=== PATIENT | male | born 1980 | race Caucasian/White ===

== ENCOUNTER 2016-12-28 18:29 | Emergency (ER) | payer BC ==
[~2016-12-28] VITALS: Ht 177.8 cm; Wt 79.0 kg
[~2016-12-28 18:29] MED LIST: INSU3INS6 SUBCUT; INSULIN; METF10002 PO
[2016-12-28] MEDS ORDERED: ONDANSETRON HCL 4MG/2ML VIAL IV STA ×2 (19:08→21:29)
[2016-12-28] MEDS ORDERED: SODIUM CHLORIDE 0.9% 1,000 ML IV ONE ×2 (19:08→21:29)
[2016-12-28] MEDS ORDERED: MORPHINE SULFATE 4 MG/ML CPJ (NOT FOR IM USE) IV STA (19:08)
[2016-12-28 19:39] LABS: DIFFERENTIAL COMMENT 1; HEMOGLOBIN. 13.6 g/dL (14.0-18.0); MEAN CORPUSCULAR HEMOGLOBIN 29.6 pg (28.0-32.0); MEAN CORPUSCULAR HGB CONC 34.8 g/dL (31.0-37.0); MEAN CORPUSCULAR VOLUME 85.1 fL (80.0-94.0); MEAN PLATELET VOLUME 7.6 fl (7.4-10.4); PLATELET 324 x1000/uL (130-400); RED BLOOD CELL COUNT 4.59 mill/uL (4.7-6.1); RED CELL DISTRIBUTION WIDTH 12.9 % (11.6-14.6)
[2016-12-28 19:41] LABS: CHLORIDE 102 mEq/L (98-107); INDEX HEMOLYSI 1 (1-3); INDEX ICTERIC 1 (1-4); INDEX LIPEMIC 1 (1-3)
[2016-12-28 19:49] LABS: ALANINE AMINOTRANSFERASE 22 IU/L (13-61); ALBUMIN 3.2 g/dL (3.4-5.0); ANION GAP 13; CALCIUM 9.2 mg/dL (8.5-10.1); CARBON DIOXIDE 25 mEq/L (21-32); LIPASE 196 IU/L (73-393); UREA NITROGEN BLOOD 25 mg/dL (7-21); eGFR 57 mL/min (>60)
[2016-12-28 20:12] LABS: PLATELET ESTIMATE NORMAL
[2016-12-28] MEDS ORDERED: INSULIN REGULAR (HUMULIN R) 300UNITS/3ML SUBCUT ONE (21:30)
[2016-12-29 01:30] VITALS: BP 131/79
== END 2016-12-29 01:42 | disposition home or self-care (01) ==
LOC: ER 18:30
DX: A08.4 Viral intestinal infection, unspecified (principal); E11.65 Type 2 diabetes mellitus with hyperglycemia; K29.70 Gastritis, unspecified, without bleeding; Z79.4 Long term (current) use of insulin
CPT/HCPCS: 36415; 76705; 80053; 82962; 83690; 85025; 85610; 96361; 96372; 96374; 96375; 99285; J1815; J2270; J2405; J7030; Z7610

== ENCOUNTER 2017-02-08 21:42 | Emergency (ER) | payer BC ==
[~2017-02-08] VITALS: Ht 177.8 cm; Wt 95.0 kg
[2017-02-08 23:07] LABS: BASOPHILS % 0.8 % (0.0-2.0); EOSINOPHILS % 3.4 % (0.0-5.0); HEMATOCRIT. 29.1 % (42.0-52.0); HEMOGLOBIN. 9.9 g/dL (14.0-18.0); MEAN CORPUSCULAR HEMOGLOBIN 28.4 pg (28.0-32.0); MEAN CORPUSCULAR VOLUME 83.9 fL (80.0-94.0); MEAN PLATELET VOLUME 6.3 fl (7.4-10.4); MONOCYTES % 9.5 % (2.0-8.0); NEUTROPHILS % 64.3 % (40.0-76.0); PLATELET 203 x1000/uL (130-400); RED BLOOD CELL COUNT 3.47 mill/uL (4.7-6.1); RED CELL DISTRIBUTION WIDTH 12.7 % (11.6-14.6)
[2017-02-08 23:10] LABS: CHLORIDE 109 mEq/L (98-107)
[2017-02-08 23:14] LABS: INR 1.1; PROTHROMBIN TIME 11.5 sec
[2017-02-08 23:19] LABS: CARBON DIOXIDE 25 mEq/L (21-32)
[2017-02-08] MEDS ORDERED: ACETAMINOPHEN WITH CODEINE 300/30MG TABLET PO ONE (23:45)
[2017-02-08 23:48] LABS: CLARITY URINE CLEAR (CLEAR); COLOR URINE YELLOW (YELLOW); GLUCOSE URINE TRACE (NEGATIVE); KETONES URINE NEGATIVE (NEGATIVE); LEUKOCYTE ESTERASE URINE NEGATIVE (NEGATIVE); NITRITE URINE NEGATIVE (NEGATIVE); OCCULT BLOOD URINE 2+ (NEGATIVE); PROTEIN URINE 3+ (NEGATIVE); SPECIFIC GRAVITY URINE 1.018 (1.005-1.030); UROBILINOGEN URINE 0.2 E.U./dL (0.2-1.0)
[2017-02-09 00:15] VITALS: BP 167/95
== END 2017-02-09 00:18 | disposition home or self-care (01) ==
LOC: ER 21:42
DX: N28.9 Disorder of kidney and ureter, unspecified (principal); E11.9 Type 2 diabetes mellitus without complications; I10 Essential (primary) hypertension; Z79.4 Long term (current) use of insulin; Z98.890 Other specified postprocedural states
CPT/HCPCS: 36415; 80053; 81001; 85025; 85610; 93005; 99285; Z7610

== ENCOUNTER 2017-05-18 01:25 | Emergency (ER) | payer BC ==
[~2017-05-18] VITALS: Ht 177.8 cm; Wt 86.4 kg
[2017-05-18] MEDS ORDERED: CYCLOBENZAPRINE 10MG TABLET PO ONE (02:15)
[2017-05-18] MEDS ORDERED: OXYCODONE HCL 5MG TABLET PO ONE (02:15)
[2017-05-18] MEDS ORDERED: KETOROLAC 60MG/2ML VIAL IM ONE (02:15)
[2017-05-18] MEDS ORDERED: ONDANSETRON 4MG ODT PO ONE (02:30)
[2017-05-18 03:37] LABS: CLARITY URINE CLEAR (CLEAR); COLOR URINE YELLOW (YELLOW); GLUCOSE URINE 3+ (NEGATIVE); KETONES URINE NEGATIVE (NEGATIVE); LEUKOCYTE ESTERASE URINE NEGATIVE (NEGATIVE); NITRITE URINE NEGATIVE (NEGATIVE); OCCULT BLOOD URINE 2+ (NEGATIVE); PROTEIN URINE 4+ (NEGATIVE); SPECIFIC GRAVITY URINE 1.022 (1.005-1.030); UROBILINOGEN URINE 0.2 E.U./dL (0.2-1.0)
[2017-05-18 04:08] VITALS: BP 175/101
== END 2017-05-18 04:58 | disposition home or self-care (01) ==
LOC: ER 01:25
DX: M54.40 Lumbago with sciatica, unspecified side (principal); E11.9 Type 2 diabetes mellitus without complications; Z79.4 Long term (current) use of insulin
CPT/HCPCS: 81001; 96372; 99283; J1885; Q0162; Z7610

== ENCOUNTER 2017-07-17 03:10 | Emergency (ER) | payer BC ==
[~2017-07-17] VITALS: Ht 177.8 cm; Wt 84.0 kg
[2017-07-17] MEDS ORDERED: METOCLOPRAMIDE HCL 10MG/2ML VIAL IV STA (03:39)
[2017-07-17] MEDS ORDERED: SODIUM CHLORIDE 0.9% 1,000 ML IV ONE (03:39)
[2017-07-17] MEDS ORDERED: DIPHENHYDRAMINE 50MG/ML VIAL IV ONE (03:45)
[2017-07-17 04:07] LABS: BASOPHILS % 0.6 % (0.0-2.0); EOSINOPHILS % 0.3 % (0.0-5.0); HEMATOCRIT. 32.8 % (42.0-52.0); HEMOGLOBIN. 11.1 g/dL (14.0-18.0); LYMPHOCYTES % 13.9 % (20.0-50.0); MEAN CORPUSCULAR HEMOGLOBIN 28.9 pg (28.0-32.0); MEAN CORPUSCULAR VOLUME 85.3 fL (80.0-94.0); MONOCYTES % 4.1 % (2.0-8.0); NEUTROPHILS % 81.1 % (40.0-76.0); PLATELET 291 x1000/uL (130-400); RED BLOOD CELL COUNT 3.84 mill/uL (4.7-6.1); RED CELL DISTRIBUTION WIDTH 13.2 % (11.6-14.6)
[2017-07-17 04:18] LABS: CARBON DIOXIDE 25 mEq/L (21-32); CHLORIDE 108 mEq/L (98-107)
[2017-07-17 04:19] LABS: PROTHROMBIN TIME 10.5 sec (9.4-11.6)
[2017-07-17 05:39] VITALS: BP 171/90
== END 2017-07-17 05:53 | disposition home or self-care (01) ==
LOC: ER 03:10
DX: K31.84 Gastroparesis (principal); E11.9 Type 2 diabetes mellitus without complications; Z79.4 Long term (current) use of insulin; Z88.3 Allergy status to other anti-infective agents
CPT/HCPCS: 36415; 80053; 82962; 83690; 85025; 85610; 96361; 96374; 96375; 99284; J1200; J2765; J7030; Z7610

== ENCOUNTER 2017-08-11 20:05 | Emergency (ER) | payer BC ==
[~2017-08-11] VITALS: Ht 177.8 cm; Wt 83.0 kg
[2017-08-11] MEDS ORDERED: ACETAMINOPHEN WITH CODEINE 300/30MG TABLET PO STA (22:22)
[2017-08-11] MEDS ORDERED: SODIUM CHLORIDE 0.9% 1,000 ML IV ONE (22:22)
[2017-08-11] MEDS ORDERED: CLONIDINE 0.1MG TABLET PO ONE (22:30)
[2017-08-11 22:54] LABS: CLARITY URINE CLEAR (CLEAR); COLOR URINE YELLOW (YELLOW); KETONES URINE NEGATIVE (NEGATIVE); LEUKOCYTE ESTERASE URINE NEGATIVE (NEGATIVE); NITRITE URINE NEGATIVE (NEGATIVE); OCCULT BLOOD URINE 2+ (NEGATIVE); PROTEIN URINE 4+ (NEGATIVE); SPECIFIC GRAVITY URINE 1.024 (1.005-1.030); UROBILINOGEN URINE 0.2 E.U./dL (0.2-1.0)
[2017-08-11 23:01] LABS: EOSINOPHILS % 2.6 % (0.0-5.0); HEMATOCRIT. 27.5 % (42.0-52.0); HEMOGLOBIN. 9.4 g/dL (14.0-18.0); LYMPHOCYTES % 17.4 % (20.0-50.0); MEAN CORPUSCULAR VOLUME 84.2 fL (80.0-94.0); MEAN PLATELET VOLUME 6.8 fl (7.4-10.4); MONOCYTES % 11.8 % (2.0-8.0); NEUTROPHILS % 67.2 % (40.0-76.0); PLATELET 267 x1000/uL (130-400); RED BLOOD CELL COUNT 3.26 mill/uL (4.7-6.1)
[2017-08-11 23:02] LABS: CHLORIDE 108 mEq/L (98-107)
[2017-08-11 23:04] LABS: PROTHROMBIN TIME 10.2 sec (9.4-11.6)
[2017-08-11 23:11] LABS: CARBON DIOXIDE 23 mEq/L (21-32)
[2017-08-12] MEDS ORDERED: AMLODIPINE 2.5MG TABLET PO ONE (00:15)
[2017-08-12 00:45] VITALS: BP 180/99
== END 2017-08-12 00:45 | disposition home or self-care (01) ==
LOC: ER 22:35
DX: I12.9 Hypertensive chronic kidney disease with stage 1 through stage 4 chronic kidney disease, or unspecified chronic kidney disease (principal); E11.22 Type 2 diabetes mellitus with diabetic chronic kidney disease; N18.9 Chronic kidney disease, unspecified; I16.0 Hypertensive urgency; Z79.4 Long term (current) use of insulin; Z88.1 Allergy status to other antibiotic agents; Z98.890 Other specified postprocedural states
CPT/HCPCS: 36415; 71010; 80053; 81001; 85025; 85610; 93005; 96360; 96361; 99285; J7030; Z7610

== ENCOUNTER 2017-09-14 00:58 | Emergency (ER) | payer BC ==
[~2017-09-14] VITALS: Ht 177.8 cm; Wt 77.0 kg
[2017-09-14] MEDS ORDERED: DIPHENHYDRAMINE 50MG/ML VIAL IV STA (01:35)
[2017-09-14] MEDS ORDERED: SODIUM CHLORIDE 0.9% 1,000 ML IV ONE (01:35)
[2017-09-14] MEDS ORDERED: FENTANYL CITRATE/PF 50MCG/ML 2ML VIAL IV ONE (01:45)
[2017-09-14 04:02] VITALS: BP 156/72
== END 2017-09-14 04:03 | disposition home or self-care (01) ==
LOC: ER 00:58
DX: M54.40 Lumbago with sciatica, unspecified side (principal); G89.29 Other chronic pain; E11.9 Type 2 diabetes mellitus without complications; K59.00 Constipation, unspecified; Z88.1 Allergy status to other antibiotic agents; Z79.4 Long term (current) use of insulin
CPT/HCPCS: 96361; 96374; 96375; 99285; J1200; J3010; J7030

== ENCOUNTER 2017-10-16 16:46 | Emergency (ER) | payer BC ==
[~2017-10-16] VITALS: Ht 177.8 cm; Wt 78.0 kg
[2017-10-16] MEDS ORDERED: MORPHINE SULFATE 4 MG/ML CPJ (NOT FOR IM USE) IV STA (17:30)
[2017-10-16] MEDS ORDERED: ONDANSETRON HCL 4MG/2ML VIAL IV STA (17:30)
[2017-10-16] MEDS ORDERED: SODIUM CHLORIDE 0.9% 1,000 ML IV ONE (17:30)
[2017-10-16] MEDS ORDERED: MAGNESIUM/ALUMINUM HYDROXIDE/SIMETHICONE 30ML UDC PO STA (17:30)
[2017-10-16 17:49] LABS: BASOPHILS % 0.5 % (0.0-2.0); EOSINOPHILS % 0.1 % (0.0-5.0); HEMATOCRIT. 33.2 % (42.0-52.0); HEMOGLOBIN. 11.5 g/dL (14.0-18.0); LYMPHOCYTES % 8.3 % (20.0-50.0); MEAN CORPUSCULAR HEMOGLOBIN 29.3 pg (28.0-32.0); MEAN PLATELET VOLUME 6.8 fl (7.4-10.4); MONOCYTES % 4.2 % (2.0-8.0); NEUTROPHILS % 86.9 % (40.0-76.0); PLATELET 267 x1000/uL (130-400); RED CELL DISTRIBUTION WIDTH 14.2 % (11.6-14.6)
[2017-10-16 17:58] LABS: CHLORIDE 109 mEq/L (98-107)
[2017-10-16 17:59] LABS: PROTHROMBIN TIME 10.4 sec (9.4-11.6)
[2017-10-16 22:41] VITALS: BP 187/102
== END 2017-10-16 22:51 | disposition home or self-care (01) ==
LOC: ER 16:46
DX: I12.9 Hypertensive chronic kidney disease with stage 1 through stage 4 chronic kidney disease, or unspecified chronic kidney disease (principal); N30.00 Acute cystitis without hematuria; E11.22 Type 2 diabetes mellitus with diabetic chronic kidney disease; E11.65 Type 2 diabetes mellitus with hyperglycemia; N18.9 Chronic kidney disease, unspecified; N17.9 Acute kidney failure, unspecified; Z79.4 Long term (current) use of insulin; Z88.3 Allergy status to other anti-infective agents; Z98.890 Other specified postprocedural states
CPT/HCPCS: 36415; 74176; 80053; 82962; 83690; 85025; 85610; 96361; 96374; 96375; 99285; J2270; J2405; J7030

== ENCOUNTER → 2018-05-05 | Outpatient (CLI) | payer BC ==
[~2018-05-05] MED LIST changes: -METF10002 PO; +METF10004 PO
[2018-05-05 11:48] LABS: BASOPHILS % 2.1 % (0.0-2.0); EOSINOPHILS % 2.7 % (0.0-5.0); HEMATOCRIT. 27.3 % (42.0-52.0); HEMOGLOBIN. 9.4 g/dL (14.0-18.0); LYMPHOCYTES % 17.3 % (20.0-50.0); MEAN CORPUSCULAR HEMOGLOBIN 29.6 pg (28.0-32.0); MEAN CORPUSCULAR VOLUME 85.8 fL (80.0-94.0); MEAN PLATELET VOLUME 6.7 fl (7.4-10.4); MONOCYTES % 5.6 % (2.0-8.0); NEUTROPHILS % 72.3 % (40.0-76.0); PLATELET 276 x1000/uL (130-400); RED BLOOD CELL COUNT 3.19 mill/uL (4.7-6.1); RED CELL DISTRIBUTION WIDTH 13.7 % (11.6-14.6)
[2018-05-05 13:40] LABS: FERRITIN 232 ng/mL (22-322)
[2018-05-05 14:21] LABS: HEPATITIS A AB IGM NEGATIVE (NEGATIVE)
[2018-05-06 06:16] LABS: HBSAG SCREEN Negative (Negative)
== END | disposition home or self-care (01) ==
LOC: LAB 10:53
DX: N18.5 Chronic kidney disease, stage 5 (principal)
CPT/HCPCS: 36415; 80048; 82728; 83540; 83550; 85025; 85610; 86709; 87340

== ENCOUNTER → 2018-07-11 | Outpatient (CLI) | payer BC ==
[~2018-07-11] MED LIST changes: +METF-416 PO; -METF10004 PO
[2018-07-11 11:09] LABS: BASOPHILS % 0.9 % (0.0-2.0); EOSINOPHILS % 2.4 % (0.0-5.0); HEMATOCRIT. 24.5 % (42.0-52.0); HEMOGLOBIN. 8.5 g/dL (14.0-18.0); LYMPHOCYTES % 18.7 % (20.0-50.0); MEAN CORPUSCULAR HEMOGLOBIN 30.2 pg (28.0-32.0); MEAN CORPUSCULAR VOLUME 86.7 fL (80.0-94.0); MEAN PLATELET VOLUME 6.5 fl (7.4-10.4); MONOCYTES % 9.6 % (2.0-8.0); NEUTROPHILS % 68.4 % (40.0-76.0); PLATELET 200 x1000/uL (130-400); RED BLOOD CELL COUNT 2.82 mill/uL (4.7-6.1); RED CELL DISTRIBUTION WIDTH 15.3 % (11.6-14.6)
== END | disposition home or self-care (01) ==
LOC: LAB 10:47
PROVIDERS: ATTEND Physician Assistant Medical
DX: E87.5 Hyperkalemia (principal)
CPT/HCPCS: 36415; 80048

== ENCOUNTER 2018-07-19 02:45 | Inpatient (IN) | payer BC ==
[~2018-07-19] VITALS: Ht 177.8 cm; Wt 93.9 kg
[2018-07-19] VITALS (19 sets, daily range): BP systolic 146–167; BP diastolic 79–92
[2018-07-19] MEDS ORDERED: SODIUM CHLORIDE 0.9% 250 ML IV ONE (03:33)
[2018-07-19] MEDS ORDERED: ONDANSETRON HCL 4MG/2ML INJ IV STA (03:33)
[2018-07-19] MEDS ORDERED: KETOROLAC 30MG/ML VIAL IV STA (03:33)
[2018-07-19] MEDS ORDERED: MORPHINE SULFATE 4 MG/ML CPJ (NOT FOR IM USE) IV STA (03:33)
[2018-07-19] MEDS ORDERED: MORPHINE SULFATE 2 MG/ML CPJ (NOT FOR IM USE) IV NR (04:00)
[2018-07-19] MEDS ORDERED: MORPHINE SULFATE 4 MG/ML CPJ (NOT FOR IM USE) IV ONE (04:00)
[2018-07-19 04:07] LABS: HEMATOCRIT. 25.7 % (42.0-52.0); HEMOGLOBIN. 8.8 g/dL (14.0-18.0); LYMPHOCYTES % 14.1 % (20.0-50.0); MEAN CORPUSCULAR HEMOGLOBIN 29.7 pg (28.0-32.0); MEAN CORPUSCULAR VOLUME 86.5 fL (80.0-94.0); MONOCYTES % 7.4 % (2.0-8.0); NEUTROPHILS % 75.5 % (40.0-76.0); PLATELET 248 x1000/uL (130-400); RED BLOOD CELL COUNT 2.97 mill/uL (4.7-6.1); RED CELL DISTRIBUTION WIDTH 15.1 % (11.6-14.6)
[2018-07-19 04:12] LABS: CHLORIDE 108 mEq/L (98-107)
[2018-07-19] MEDS ORDERED: ACETAMINOPHEN 325MG TABLET PO PRN ×2 (05:45→07:30)
[2018-07-19] MEDS ORDERED: SODIUM CHLORIDE 0.9% 1,000 ML IV SCH (07:18)
[2018-07-19] MEDS ORDERED: CLONIDINE 0.1MG TABLET PO PRN (07:30)
[2018-07-19] MEDS ORDERED: HYDROCODONE/ACETAMINOPHEN 5/325MG TABLET PO PRN (07:30)
[2018-07-19] MEDS ORDERED: DIPHENHYDRAMINE 50MG/ML VIAL IV PRN (07:30)
[2018-07-19] MEDS ORDERED: MAGNESIUM/ALUMINUM HYDROXIDE/SIMETHICONE 30ML UDC PO PRN (07:30)
[2018-07-19] MEDS ORDERED: DOCUSATE SODIUM 100MG CAPSULE PO PRN (07:30)
[2018-07-19] MEDS ORDERED: ONDANSETRON HCL 4MG/2ML INJ IV PRN (07:30)
[2018-07-19] MEDS ORDERED: GUAIFENESIN 200MG/10ML SUGAR FREE UDC PO PRN (07:30)
[2018-07-19] MEDS: AMLODIPINE 10MG TABLET PO SCH (08:31)
[2018-07-19 11:17] LABS: INR 1.1; PROTHROMBIN TIME 10.6 sec (9.1-11.1)
[2018-07-19] MEDS ORDERED: CEFAZOLIN 1000MG PREMIX 50 ML IV NR (12:45)
[2018-07-19] MEDS ORDERED: LIDOCAINE HCL 1% 20ML VIAL (Pyxis) INJ ONE (12:59)
[2018-07-19] MEDS ORDERED: HEPARIN 1000 UNITS/ML 10ML ONE (12:59)
[2018-07-19] MEDS ORDERED: CEFAZOLIN 1000MG PREMIX 0 ML IV ONE (13:06)
[2018-07-19] MEDS ORDERED: FENTANYL CITRATE/PF 50MCG/ML 2ML VIAL ONE (13:07)
[2018-07-19] MEDS ORDERED: CLINDAMYCIN 600 MG in SODIUM CHLORIDE 0.9% 50 ML IV SCH (13:15)
[2018-07-19] MEDS ORDERED: CLINDAMYCIN 600MG PREMIX 50 ML IV SCH (13:15)
[2018-07-19] MEDS ORDERED: CLINDAMYCIN 600 MG in DEXTROSE 5% WATER 50 ML IV ONE (13:15)
[2018-07-19] MEDS ORDERED: FENTANYL CITRATE/PF 50MCG/ML 2ML VIAL IV ONE (13:45)
[2018-07-19] MEDS ORDERED: DEXTROSE 50% WATER 50ML SYRINGE IV PRN (23:30)
[2018-07-20 00:43] VITALS: BP 145/77
[2018-07-20 04:00] VITALS: BP 157/86
[2018-07-20] MEDS: BLOOD SUGAR DIAGNOSTIC STRIP TEST SCH ×4 (07:20→20:31)
[2018-07-20] MEDS: INSULIN LISPRO 100 UNITS/ML SUBCUT SCH ×4 (07:50→21:01)
[2018-07-20 08:00] VITALS: BP 157/85
[2018-07-20] MEDS: AMLODIPINE 10MG TABLET PO SCH (08:21)
[2018-07-20 12:15] LABS: BASOPHILS % 1.1 % (0.0-2.0); EOSINOPHILS % 2.2 % (0.0-5.0); HEMATOCRIT. 24.4 % (42.0-52.0); HEMOGLOBIN. 8.5 g/dL (14.0-18.0); LYMPHOCYTES % 13.9 % (20.0-50.0); MEAN CORPUSCULAR HEMOGLOBIN 30.3 pg (28.0-32.0); MEAN CORPUSCULAR VOLUME 86.6 fL (80.0-94.0); MEAN PLATELET VOLUME 7.2 fl (7.4-10.4); MONOCYTES % 7.9 % (2.0-8.0); NEUTROPHILS % 74.9 % (40.0-76.0); PLATELET 207 x1000/uL (130-400); RED BLOOD CELL COUNT 2.82 mill/uL (4.7-6.1); RED CELL DISTRIBUTION WIDTH 15.1 % (11.6-14.6)
[2018-07-20 12:18] LABS: CHLORIDE 108 mEq/L (98-107)
[2018-07-20 12:28] LABS: HEPATITIS B SURFACE ANTIGEN NEGATIVE
[2018-07-20 12:47] VITALS: BP 160/79
[2018-07-20 12:58] LABS: HEPATITIS A AB IGM NEGATIVE (NEGATIVE)
[2018-07-20 17:16] VITALS: BP 161/84
[2018-07-20 20:00] VITALS: BP 138/74
[2018-07-21] VITALS: BP 119/71
[2018-07-21 04:00] VITALS: BP 130/73
[2018-07-21] MEDS: BLOOD SUGAR DIAGNOSTIC STRIP TEST SCH (05:52)
[2018-07-21 08:00] VITALS: BP 167/85
[2018-07-21] MEDS: AMLODIPINE 10MG TABLET PO SCH (08:23)
[2018-07-21 10:25] VITALS: BP 167/85
[2018-07-21] MEDS ORDERED: PNEUMOCOCCAL 23-VAL P-SAC VAC 0.5 ML IM ONE (11:15)
== END 2018-07-21 11:55 | disposition home or self-care (01) | DRG 673 ==
LOC: ER 02:45 → EDBEDREQ 05:45 → ENRESERV 12:47 → 6WST 16:06
PROVIDERS: ADMIT Hospitalist; ATTEND Hospitalist
PROC: 5A1D70Z Performance of Urinary Filtration, Intermittent, Less than 6 Hours Per Day (ICD-10-PCS; principal; 2018-07-19)
PROC: 0JH63XZ Insertion of Tunneled Vascular Access Device into Chest Subcutaneous Tissue and Fascia, Percutaneous Approach (ICD-10-PCS; 2018-07-19)
PROC: 02H633Z Insertion of Infusion Device into Right Atrium, Percutaneous Approach (ICD-10-PCS; 2018-07-19)
PROC: B2141ZZ Fluoroscopy of Right Heart using Low Osmolar Contrast (ICD-10-PCS; 2018-07-19)
PROC: B244ZZZ Ultrasonography of Right Heart (ICD-10-PCS; 2018-07-19)
PROC: 5A1D70Z Performance of Urinary Filtration, Intermittent, Less than 6 Hours Per Day (ICD-10-PCS; 2018-07-20)
DX: N17.9 Acute kidney failure, unspecified (principal); E43 Unspecified severe protein-calorie malnutrition; I12.0 Hypertensive chronic kidney disease with stage 5 chronic kidney disease or end stage renal disease; N18.6 End stage renal disease; E11.22 Type 2 diabetes mellitus with diabetic chronic kidney disease; D63.8 Anemia in other chronic diseases classified elsewhere; Z99.2 Dependence on renal dialysis; Z88.1 Allergy status to other antibiotic agents; Z68.29 Body mass index [BMI] 29.0-29.9, adult; Z79.4 Long term (current) use of insulin
CPT/HCPCS: 36415; 36558; 71045; 76937; 77001; 82962; 83605; 83880; 84484; 86705; 86709; 86803; 87340; 90732; 93005; 93970; 96361; 96374; 96375; 99285; C1750; J0690; J1644; J1815; J1885; J2270; J2405; J3010; J3490; J7030; J7050

== ENCOUNTER 2018-11-07 01:29 | Emergency (ER) | payer BC ==
[~2018-11-07] VITALS: Ht 177.8 cm; Wt 88.0 kg
[2018-11-07] MEDS ORDERED: SODIUM CHLORIDE 0.9% 1,000 ML IV ONE (02:01)
[2018-11-07] MEDS ORDERED: MORPHINE SULFATE 4 MG/ML CPJ (NOT FOR IM USE) IV STA (02:01)
[2018-11-07] MEDS ORDERED: ONDANSETRON HCL 4MG/2ML INJ IV STA (02:01)
[2018-11-07] MEDS ORDERED: MAGNESIUM/ALUMINUM HYDROXIDE/SIMETHICONE 30ML UDC PO STA (02:06)
[2018-11-07 02:19] LABS: HEMATOCRIT. 32.7 % (42.0-52.0); MEAN CORPUSCULAR HEMOGLOBIN 30.7 pg (28.0-32.0); MEAN CORPUSCULAR VOLUME 90.9 fL (80.0-94.0); MEAN PLATELET VOLUME 7.4 fl (7.4-10.4); PLATELET 159 x1000/uL (130-400); RED CELL DISTRIBUTION WIDTH 16.3 % (11.6-14.6)
[2018-11-07 02:26] LABS: CHLORIDE 107 mEq/L (98-107)
[2018-11-07 02:53] LABS: PLATELET ESTIMATE NORMAL
[2018-11-07] MEDS ORDERED: METOCLOPRAMIDE HCL 10MG/2ML VIAL IV NR (03:30)
[2018-11-07 04:48] LABS: CLARITY URINE CLEAR (CLEAR); COLOR URINE YELLOW (YELLOW); KETONES URINE NEGATIVE (NEGATIVE); LEUKOCYTE ESTERASE URINE NEGATIVE (NEGATIVE); NITRITE URINE NEGATIVE (NEGATIVE); OCCULT BLOOD URINE 1+ (NEGATIVE); PROTEIN URINE 4+ (NEGATIVE); SPECIFIC GRAVITY URINE 1.019 (1.005-1.030); UROBILINOGEN URINE 0.2 E.U./dL (0.2-1.0)
[2018-11-07 06:25] VITALS: BP 137/73
== END 2018-11-07 06:27 | disposition home or self-care (01) ==
LOC: ER 01:29
DX: R10.13 Epigastric pain (principal); R11.2 Nausea with vomiting, unspecified; R19.7 Diarrhea, unspecified; R68.83 Chills (without fever); I12.9 Hypertensive chronic kidney disease with stage 1 through stage 4 chronic kidney disease, or unspecified chronic kidney disease; E11.22 Type 2 diabetes mellitus with diabetic chronic kidney disease; N18.9 Chronic kidney disease, unspecified; Z79.4 Long term (current) use of insulin; Z99.2 Dependence on renal dialysis; Z98.890 Other specified postprocedural states; Z88.1 Allergy status to other antibiotic agents; Z79.899 Other long term (current) drug therapy
CPT/HCPCS: 36415; 76705; 80053; 81003; 82962; 83690; 85025; 85610; 96361; 96374; 96375; 99284; J2270; J2405; J2765; J7030; Z7610

== ENCOUNTER 2018-11-13 22:44 | Emergency (ER) | payer BC ==
[~2018-11-13] VITALS: Ht 172.7 cm; Wt 72.0 kg
[2018-11-13] MEDS ORDERED: TRAMADOL 50MG TABLET PO ONE (23:45)
[2018-11-13] MEDS ORDERED: ONDANSETRON 4MG ODT PO ONE (23:45)
[2018-11-14 01:51] VITALS: BP 153/78
== END 2018-11-14 01:55 | disposition home or self-care (01) ==
LOC: ER 22:44
DX: S40.011A Contusion of right shoulder, initial encounter (principal); S29.9XXA Unspecified injury of thorax, initial encounter; S43.101A Unspecified dislocation of right acromioclavicular joint, initial encounter; E11.22 Type 2 diabetes mellitus with diabetic chronic kidney disease; I12.9 Hypertensive chronic kidney disease with stage 1 through stage 4 chronic kidney disease, or unspecified chronic kidney disease; N18.9 Chronic kidney disease, unspecified; Z88.1 Allergy status to other antibiotic agents; Z79.899 Other long term (current) drug therapy; Z79.4 Long term (current) use of insulin; Y08.89XA Assault by other specified means, initial encounter; Y93.89 Activity, other specified; Y92.89 Other specified places as the place of occurrence of the external cause; Y99.8 Other external cause status
CPT/HCPCS: 71045; 73030; 73050; 76604; 99284; Q0162; Z7610

== ENCOUNTER → 2018-11-16 | Outpatient (CLI) | payer OTHER | END | disposition home or self-care (01) | LOC: MRI 08:15 | PROVIDERS: ATTEND Emergency Medicine | DX: S46.811A Strain of other muscles, fascia and tendons at shoulder and upper arm level, right arm, initial encounter (principal); S43.431A Superior glenoid labrum lesion of right shoulder, initial encounter; X58.XXXA Exposure to other specified factors, initial encounter; Y93.89 Activity, other specified; Y92.89 Other specified places as the place of occurrence of the external cause; Y99.8 Other external cause status | CPT/HCPCS: 73221 ==

== ENCOUNTER 2018-11-24 23:13 | Emergency (ER) | payer OTHER ==
[~2018-11-24] VITALS: Ht 177.8 cm; Wt 87.0 kg
[2018-11-25] MEDS ORDERED: MORPHINE SULFATE 10 MG/ML CPJ IM ONE (00:45)
[2018-11-25 03:04] VITALS: BP 144/76
== END 2018-11-25 03:04 | disposition home or self-care (01) ==
LOC: ER 23:13
DX: S93.402A Sprain of unspecified ligament of left ankle, initial encounter (principal); W10.9XXA Fall (on) (from) unspecified stairs and steps, initial encounter; Y93.89 Activity, other specified; Y92.89 Other specified places as the place of occurrence of the external cause
CPT/HCPCS: 73590; 73610; 73630; 96372; 99283; J2270

== ENCOUNTER 2018-12-18 23:06 | Inpatient (IN) | payer OTHER, MEDICARE ==
[~2018-12-18] VITALS: Ht 177.8 cm; Wt 79.9 kg
[2018-12-19] MEDS ORDERED: KETOROLAC 30MG/ML VIAL IM ONE (00:15)
[2018-12-19 00:40] LABS: BASOPHILS % 1.2 % (0.0-2.0); HEMATOCRIT. 27.5 % (42.0-52.0); HEMOGLOBIN. 9.3 g/dL (14.0-18.0); LYMPHOCYTES % 16.5 % (20.0-50.0); MEAN CORPUSCULAR HEMOGLOBIN 29.9 pg (28.0-32.0); MEAN CORPUSCULAR VOLUME 88.6 fL (80.0-94.0); MEAN PLATELET VOLUME 6.7 fl (7.4-10.4); MONOCYTES % 10.4 % (2.0-8.0); NEUTROPHILS % 67.9 % (40.0-76.0); PLATELET 240 x1000/uL (130-400); RED CELL DISTRIBUTION WIDTH 18.5 % (11.6-14.6)
[2018-12-19] MEDS ORDERED: ACETAMINOPHEN 325MG TABLET PO PRN (11:45)
[2018-12-19] MEDS ORDERED: DOCUSATE SODIUM 100MG CAPSULE PO PRN (11:45)
[2018-12-19] MEDS ORDERED: HYDROCODONE/ACETAMINOPHEN 10/325MG TABLET PO PRN (11:45)
[2018-12-19] MEDS ORDERED: ENOXAPARIN 40MG/0.4ML SYR SUBCUT SCH (11:45)
[2018-12-19] MEDS ORDERED: GUAIFENESIN 200MG/10ML SUGAR FREE UDC PO PRN (11:45)
[2018-12-19] MEDS ORDERED: DIPHENHYDRAMINE 50MG/ML VIAL IV PRN (11:45)
[2018-12-19] MEDS ORDERED: ONDANSETRON HCL 4MG/2ML INJ IV PRN (11:45)
[2018-12-19] MEDS ORDERED: CLONIDINE 0.1MG TABLET PO PRN (11:45)
[2018-12-19 13:28] VITALS: BP 179/92
[2018-12-19 14:08] VITALS: BP 179/92
[2018-12-19] MEDS: ENOXAPARIN 30MG/0.3ML SYR SUBCUT SCH (15:47)
[2018-12-19] MEDS: AMLODIPINE 10MG TABLET PO SCH (15:47)
[2018-12-19 16:15] VITALS: BP 164/88
[2018-12-19 20:00] VITALS: BP 168/84
[2018-12-19] MEDS ORDERED: DEXTROSE 50% WATER 50ML SYRINGE IV PRN (20:00)
[2018-12-19] MEDS: INSULIN LISPRO 100 UNITS/ML SUBCUT SCH (21:00)
[2018-12-19] MEDS: BLOOD SUGAR DIAGNOSTIC STRIP TEST SCH (21:00)
[2018-12-19] MEDS: MORPHINE SULFATE 4 MG/ML CPJ (NOT FOR IM USE) IV PRN (21:07)
[2018-12-20 00:06] VITALS: BP 126/72
[2018-12-20 04:00] VITALS: BP 132/77
[2018-12-20] MEDS: BLOOD SUGAR DIAGNOSTIC STRIP TEST SCH ×4 (06:32→20:37)
[2018-12-20] MEDS: INSULIN LISPRO 100 UNITS/ML SUBCUT SCH ×4 (06:32→20:37)
[2018-12-20 06:34] LABS: BASOPHILS % 1.8 % (0.0-2.0); HEMATOCRIT. 27.8 % (42.0-52.0); HEMOGLOBIN. 9.1 g/dL (14.0-18.0); LYMPHOCYTES % 25.4 % (20.0-50.0); MEAN CORPUSCULAR HEMOGLOBIN 29.1 pg (28.0-32.0); MEAN CORPUSCULAR VOLUME 88.8 fL (80.0-94.0); MEAN PLATELET VOLUME 6.9 fl (7.4-10.4); MONOCYTES % 9.2 % (2.0-8.0); NEUTROPHILS % 57.6 % (40.0-76.0); PLATELET 254 x1000/uL (130-400); RED BLOOD CELL COUNT 3.13 mill/uL (4.7-6.1); RED CELL DISTRIBUTION WIDTH 18.5 % (11.6-14.6)
[2018-12-20 07:22] LABS: CHLORIDE 108 mEq/L (98-107)
[2018-12-20] MEDS: AMLODIPINE 10MG TABLET PO SCH (08:18)
[2018-12-20] MEDS: ENOXAPARIN 30MG/0.3ML SYR SUBCUT SCH (14:15)
[2018-12-20] MEDS ORDERED: AMLO10TA80 PO (14:20)
[2018-12-20] MEDS ORDERED: SEVE800T8 PO (14:20)
[2018-12-20] MEDS ORDERED: FOLI0.8T23 PO (14:20)
[2018-12-20] MEDS ORDERED: HYDR-4135 PO (14:20)
[2018-12-20 20:00] VITALS: BP 141/75
[2018-12-20 20:31] VITALS: BP 141/75
[2018-12-20] MEDS: MORPHINE SULFATE 4 MG/ML CPJ (NOT FOR IM USE) IV PRN (20:37)
[2018-12-21] VITALS: BP 136/75
[2018-12-21 04:00] VITALS: BP 135/76
[2018-12-21] MEDS: BLOOD SUGAR DIAGNOSTIC STRIP TEST SCH ×4 (06:21→20:52)
[2018-12-21 06:52] LABS: BASOPHILS % 1.1 % (0.0-2.0); HEMATOCRIT. 28.5 % (42.0-52.0); HEMOGLOBIN. 9.4 g/dL (14.0-18.0); MEAN CORPUSCULAR HEMOGLOBIN 29.2 pg (28.0-32.0); MEAN CORPUSCULAR VOLUME 88.5 fL (80.0-94.0); MEAN PLATELET VOLUME 6.6 fl (7.4-10.4); MONOCYTES % 7.4 % (2.0-8.0); NEUTROPHILS % 57.5 % (40.0-76.0); PLATELET 289 x1000/uL (130-400); RED BLOOD CELL COUNT 3.22 mill/uL (4.7-6.1); RED CELL DISTRIBUTION WIDTH 18.8 % (11.6-14.6)
[2018-12-21] MEDS: INSULIN LISPRO 100 UNITS/ML SUBCUT SCH ×4 (07:38→20:53)
[2018-12-21 08:17] VITALS: BP 140/76
[2018-12-21] MEDS: AMLODIPINE 10MG TABLET PO SCH (09:02)
[2018-12-21 12:04] VITALS: BP 128/72
[2018-12-21] MEDS: ENOXAPARIN 30MG/0.3ML SYR SUBCUT SCH (14:47)
[2018-12-21 16:20] VITALS: BP 148/80
[2018-12-21 20:00] VITALS: BP 151/81
[2018-12-21] MEDS ORDERED: ATORVASTATIN CALCIUM 10MG TABLET PO SCH (21:00)
[2018-12-22] VITALS: BP 141/77
[2018-12-22] MEDS: MORPHINE SULFATE 4 MG/ML CPJ (NOT FOR IM USE) IV PRN (00:27)
[2018-12-22 04:00] VITALS: BP 127/72
[2018-12-22 06:18] LABS: BASOPHILS % 1.4 % (0.0-2.0); EOSINOPHILS % 4.6 % (0.0-5.0); HEMATOCRIT. 28.5 % (42.0-52.0); HEMOGLOBIN. 9.5 g/dL (14.0-18.0); MEAN CORPUSCULAR HEMOGLOBIN 29.3 pg (28.0-32.0); MEAN PLATELET VOLUME 6.5 fl (7.4-10.4); PLATELET 291 x1000/uL (130-400); RED BLOOD CELL COUNT 3.24 mill/uL (4.7-6.1); RED CELL DISTRIBUTION WIDTH 18.7 % (11.6-14.6)
[2018-12-22] MEDS: BLOOD SUGAR DIAGNOSTIC STRIP TEST SCH (06:36)
[2018-12-22] MEDS: INSULIN LISPRO 100 UNITS/ML SUBCUT SCH (07:50)
[2018-12-22 08:00] VITALS: BP 147/79
[2018-12-22] MEDS: AMLODIPINE 10MG TABLET PO SCH (08:35)
== END 2018-12-22 13:25 | disposition home health service (06) | DRG 562 ==
LOC: ER 23:06 → 6WST 12-19 09:11 → ENRESERV 12-19 10:59 → SUPCPDRO 12-19 11:31
PROVIDERS: ADMIT Hospitalist; ATTEND Hospitalist
PROC: 2W3TX1Z Immobilization of Left Foot using Splint (ICD-10-PCS; principal; 2018-12-19)
PROC: 5A1D70Z Performance of Urinary Filtration, Intermittent, Less than 6 Hours Per Day (ICD-10-PCS; 2018-12-19)
PROC: 5A1D70Z Performance of Urinary Filtration, Intermittent, Less than 6 Hours Per Day (ICD-10-PCS; 2018-12-21)
DX: S92.212A Displaced fracture of cuboid bone of left foot, initial encounter for closed fracture (principal); N18.6 End stage renal disease; I12.0 Hypertensive chronic kidney disease with stage 5 chronic kidney disease or end stage renal disease; D63.1 Anemia in chronic kidney disease; E11.22 Type 2 diabetes mellitus with diabetic chronic kidney disease; E11.51 Type 2 diabetes mellitus with diabetic peripheral angiopathy without gangrene; S92.252A Displaced fracture of navicular [scaphoid] of left foot, initial encounter for closed fracture; W01.0XXA Fall on same level from slipping, tripping and stumbling without subsequent striking against object, initial encounter; S92.242A Displaced fracture of medial cuneiform of left foot, initial encounter for closed fracture; E11.42 Type 2 diabetes mellitus with diabetic polyneuropathy; S49.91XA Unspecified injury of right shoulder and upper arm, initial encounter; E87.5 Hyperkalemia; D64.9 Anemia, unspecified; Y93.89 Activity, other specified; Y92.89 Other specified places as the place of occurrence of the external cause; Z79.899 Other long term (current) drug therapy; Z88.1 Allergy status to other antibiotic agents; Z79.84 Long term (current) use of oral hypoglycemic drugs; Z79.4 Long term (current) use of insulin; Y99.8 Other external cause status; Z99.2 Dependence on renal dialysis
CPT/HCPCS: 36415; 73590; 73610; 73630; 73700; 80048; 82962; 83036; 83880; 93971; 96372; 97116; 97163; 97535; 99285; J1650; J1815; J1885; J2270

== ENCOUNTER 2018-12-29 16:09 | Inpatient (IN) | payer MEDICARE, OTHER ==
[~2018-12-29] VITALS: Ht 177.8 cm; Wt 87.1 kg
[~2018-12-29 16:09] MED LIST changes: +AMLO10TA80 PO; +FOLI0.8T23 PO; +HYDR-4135 PO; +SEVE800T8 PO
[2018-12-29] MEDS ORDERED: DEXT 5%/0.9% NACL 1,000 ML IV ONE (17:00)
[2018-12-29] MEDS ORDERED: KETOROLAC 30MG/ML VIAL IV ONE (17:00)
[2018-12-29] MEDS ORDERED: METOCLOPRAMIDE HCL 10MG/2ML VIAL IV STA (17:03)
[2018-12-29] MEDS ORDERED: MAGNESIUM/ALUMINUM HYDROXIDE/SIMETHICONE 30ML UDC PO STA (17:03)
[2018-12-29] MEDS ORDERED: SODIUM CHLORIDE 0.9% 1,000 ML IV ONE (17:03)
[2018-12-29] MEDS ORDERED: FAMOTIDINE 20MG/2ML VIAL IV STA (17:03)
[2018-12-29] MEDS ORDERED: DIPHENHYDRAMINE 50MG/ML VIAL IV ONE (17:15)
[2018-12-29 17:34] LABS: CHLORIDE 103 mEq/L (98-107)
[2018-12-29 17:35] LABS: BASOPHILS % 0.9 % (0.0-2.0); EOSINOPHILS % 1.1 % (0.0-5.0); HEMATOCRIT. 35.5 % (42.0-52.0); HEMOGLOBIN. 11.7 g/dL (14.0-18.0); MEAN CORPUSCULAR HEMOGLOBIN 29.8 pg (28.0-32.0); MEAN CORPUSCULAR VOLUME 90.6 fL (80.0-94.0); MEAN PLATELET VOLUME 6.8 fl (7.4-10.4); PLATELET 261 x1000/uL (130-400); RED BLOOD CELL COUNT 3.92 mill/uL (4.7-6.1); RED CELL DISTRIBUTION WIDTH 20.3 % (11.6-14.6)
[2018-12-29 23:35] VITALS: BP 155/84
[2018-12-30] MEDS ORDERED: ATOR10TA MT (00:10)
[2018-12-30] MEDS ORDERED: HYDROCODONE/ACETAMINOPHEN 5/325MG TABLET PO PRN (00:15)
[2018-12-30] MEDS ORDERED: ONDANSETRON HCL 4MG/2ML INJ IV PRN (00:15)
[2018-12-30] MEDS ORDERED: GUAIFENESIN 200MG/10ML SUGAR FREE UDC PO PRN (00:15)
[2018-12-30] MEDS ORDERED: DIPHENHYDRAMINE 50MG/ML VIAL IV PRN (00:15)
[2018-12-30] MEDS ORDERED: HYDROMORPHONE HCL/PF 2MG/ML CPJ IV PRN (00:15)
[2018-12-30] MEDS ORDERED: CLONIDINE 0.1MG TABLET PO PRN (00:15)
[2018-12-30] MEDS ORDERED: ACETAMINOPHEN 325MG TABLET PO PRN (00:15)
[2018-12-30] MEDS ORDERED: DOCUSATE SODIUM 100MG CAPSULE PO PRN (00:15)
[2018-12-30] MEDS ORDERED: MAGNESIUM/ALUMINUM HYDROXIDE/SIMETHICONE 30ML UDC PO PRN (00:15)
[2018-12-30] MEDS ORDERED: DEXTROSE 50% WATER 50ML SYRINGE IV PRN (00:45)
[2018-12-30 04:00] VITALS: BP 159/83
[2018-12-30] MEDS: BLOOD SUGAR DIAGNOSTIC STRIP TEST SCH ×4 (06:22→21:43)
[2018-12-30] MEDS: INSULIN LISPRO 100 UNITS/ML SUBCUT SCH ×4 (07:50→21:00)
[2018-12-30] MEDS: FAMOTIDINE 20MG/2ML VIAL IV SCH (08:53)
[2018-12-30] MEDS: AMLODIPINE 10MG TABLET PO SCH (08:54)
[2018-12-30] MEDS: SEVELAMER CARBONATE 800 MG TABLET PO SCH ×2 (13:01→17:37)
[2018-12-30] MEDS: HYDRALAZINE HCL 50MG TABLET PO SCH ×2 (15:30→21:43)
[2018-12-30 17:15] LABS: BASOPHILS % 1.5 % (0.0-2.0); EOSINOPHILS % 3.9 % (0.0-5.0); HEMATOCRIT. 31.3 % (42.0-52.0); HEMOGLOBIN. 10.4 g/dL (14.0-18.0); LYMPHOCYTES % 25.7 % (20.0-50.0); MEAN CORPUSCULAR HEMOGLOBIN 30.1 pg (28.0-32.0); MEAN CORPUSCULAR VOLUME 90.8 fL (80.0-94.0); MEAN PLATELET VOLUME 6.8 fl (7.4-10.4); NEUTROPHILS % 58.9 % (40.0-76.0); PLATELET 218 x1000/uL (130-400); RED BLOOD CELL COUNT 3.44 mill/uL (4.7-6.1); RED CELL DISTRIBUTION WIDTH 19.7 % (11.6-14.6)
[2018-12-30 20:00] VITALS: BP_SYST 168; BP_SYST 175; BP_DIAS 87; BP_DIAS 91
[2018-12-30] MEDS ORDERED: INSULIN GLARGINE UD 100 UNITS/ML SYR SUBCUT SCH (22:00)
[2018-12-31] VITALS: BP 148/76
[2018-12-31 04:00] VITALS: BP 138/75
[2018-12-31] MEDS: HYDRALAZINE HCL 50MG TABLET PO SCH (06:00)
[2018-12-31 06:57] LABS: BASOPHILS % 1.4 % (0.0-2.0); EOSINOPHILS % 4.3 % (0.0-5.0); HEMATOCRIT. 31.7 % (42.0-52.0); HEMOGLOBIN. 10.3 g/dL (14.0-18.0); LYMPHOCYTES % 24.3 % (20.0-50.0); MEAN CORPUSCULAR HEMOGLOBIN 29.6 pg (28.0-32.0); MEAN CORPUSCULAR VOLUME 91.1 fL (80.0-94.0); MEAN PLATELET VOLUME 6.7 fl (7.4-10.4); MONOCYTES % 9.4 % (2.0-8.0); NEUTROPHILS % 60.6 % (40.0-76.0); PLATELET 189 x1000/uL (130-400); RED BLOOD CELL COUNT 3.48 mill/uL (4.7-6.1); RED CELL DISTRIBUTION WIDTH 19.4 % (11.6-14.6)
[2018-12-31 07:15] LABS: CHLORIDE 110 mEq/L (98-107)
[2018-12-31] MEDS: BLOOD SUGAR DIAGNOSTIC STRIP TEST SCH ×2 (07:46→12:20)
[2018-12-31] MEDS: INSULIN LISPRO 100 UNITS/ML SUBCUT SCH ×2 (07:50→12:50)
[2018-12-31 08:00] VITALS: BP 162/83
[2018-12-31] MEDS: AMLODIPINE 10MG TABLET PO SCH (10:23)
[2018-12-31] MEDS: FAMOTIDINE 20MG/2ML VIAL IV SCH (10:23)
[2018-12-31] MEDS: SEVELAMER CARBONATE 800 MG TABLET PO SCH ×2 (10:24→13:24)
[2018-12-31 12:00] VITALS: BP 171/86
[2018-12-31 12:14] LABS: PHOSPHORUS 4.9 mg/dL (2.5-4.9)
[2018-12-31 14:49] VITALS: BP 171/86
[2018-12-31] MEDS ORDERED: SODIUM POLYSTYRENE SULFONATE 15 G/60 ML BOT PO NR (15:00)
== END 2018-12-31 15:20 | disposition home or self-care (01) | DRG 640 ==
LOC: ER 16:09 → 6WST 21:15 → EDBEDREQ 21:17 → EDBEDREQTM 21:17 → ENRESERV 22:43
PROVIDERS: ADMIT Hospitalist; ATTEND Hospitalist
PROC: 5A1D70Z Performance of Urinary Filtration, Intermittent, Less than 6 Hours Per Day (ICD-10-PCS; principal; 2018-12-30)
DX: E87.5 Hyperkalemia (principal); N18.6 End stage renal disease; G45.9 Transient cerebral ischemic attack, unspecified; I12.0 Hypertensive chronic kidney disease with stage 5 chronic kidney disease or end stage renal disease; E11.22 Type 2 diabetes mellitus with diabetic chronic kidney disease; D64.9 Anemia, unspecified; Z82.49 Family history of ischemic heart disease and other diseases of the circulatory system; Z87.81 Personal history of (healed) traumatic fracture; Z99.2 Dependence on renal dialysis; Z88.1 Allergy status to other antibiotic agents; Z79.84 Long term (current) use of oral hypoglycemic drugs; Z79.4 Long term (current) use of insulin; Z79.899 Other long term (current) drug therapy
CPT/HCPCS: 36415; 80051; 82962; 83735; 84100; 84484; 93005; 93970; 96374; 96375; 99285; J1200; J1815; J2405; J2765; J3490; J7030; J7042

== ENCOUNTER 2019-02-28 00:33 | Emergency (ER) | payer MEDICARE, BC ==
[~2019-02-28] VITALS: Ht 177.8 cm; Wt 84.0 kg
[~2019-02-28 00:33] MED LIST changes: +ATOR10TA MT
[2019-02-28 01:42] LABS: BASOPHILS % 0.8 % (0.0-2.0); EOSINOPHILS % 1.5 % (0.0-5.0); HEMATOCRIT. 35.1 % (42.0-52.0); HEMOGLOBIN. 11.9 g/dL (14.0-18.0); MEAN CORPUSCULAR HEMOGLOBIN 29.6 pg (28.0-32.0); MEAN CORPUSCULAR VOLUME 87.5 fL (80.0-94.0); MONOCYTES % 8.8 % (2.0-8.0); NEUTROPHILS % 74.9 % (40.0-76.0); PLATELET 218 x1000/uL (130-400); RED BLOOD CELL COUNT 4.01 mill/uL (4.7-6.1); RED CELL DISTRIBUTION WIDTH 17.1 % (11.6-14.6)
[2019-02-28 01:50] LABS: CHLORIDE 98 mEq/L (98-107)
[2019-02-28 02:52] VITALS: BP 162/92
== END 2019-02-28 03:16 | disposition home or self-care (01) ==
LOC: ER 00:33
DX: E11.22 Type 2 diabetes mellitus with diabetic chronic kidney disease (principal); N18.6 End stage renal disease; R03.0 Elevated blood-pressure reading, without diagnosis of hypertension; Z99.2 Dependence on renal dialysis; Z79.4 Long term (current) use of insulin; Z79.899 Other long term (current) drug therapy
CPT/HCPCS: 36415; 71045; 83605; 84484; 93005; 99284

== ENCOUNTER 2019-03-22 00:48 | Emergency (ER) | payer OTHER ==
[~2019-03-22] VITALS: Ht 177.8 cm; Wt 84.0 kg
[2019-03-22] MEDS ORDERED: MORPHINE SULFATE 4 MG/ML CPJ (NOT FOR IM USE) IV STA (01:20)
[2019-03-22] MEDS ORDERED: SODIUM CHLORIDE 0.9% 1,000 ML IV ONE (01:20)
[2019-03-22] MEDS ORDERED: ONDANSETRON HCL 4MG/2ML INJ IV STA (01:20)
[2019-03-22 01:33] LABS: CHLORIDE 99 mEq/L (98-107)
[2019-03-22 01:41] LABS: BASOPHILS % 1.2 % (0.0-2.0); EOSINOPHILS % 2.9 % (0.0-5.0); HEMATOCRIT. 30.7 % (42.0-52.0); HEMOGLOBIN. 10.6 g/dL (14.0-18.0); LYMPHOCYTES % 22.3 % (20.0-50.0); MEAN CORPUSCULAR HEMOGLOBIN 30.2 pg (28.0-32.0); MEAN CORPUSCULAR VOLUME 87.2 fL (80.0-94.0); MEAN PLATELET VOLUME 6.9 fl (7.4-10.4); MONOCYTES % 10.5 % (2.0-8.0); NEUTROPHILS % 63.1 % (40.0-76.0); PLATELET 210 x1000/uL (130-400); RED BLOOD CELL COUNT 3.52 mill/uL (4.7-6.1)
[2019-03-22 04:35] LABS: CLARITY URINE CLEAR (CLEAR); COLOR URINE YELLOW (YELLOW); KETONES URINE NEGATIVE (NEGATIVE); LEUKOCYTE ESTERASE URINE NEGATIVE (NEGATIVE); NITRITE URINE NEGATIVE (NEGATIVE); OCCULT BLOOD URINE 1+ (NEGATIVE); PH URINE 7.5 (4.5-8.0); PROTEIN URINE 4+ (NEGATIVE); SPECIFIC GRAVITY URINE 1.011 (1.005-1.030); UROBILINOGEN URINE 0.2 E.U./dL (0.2-1.0)
[2019-03-22 05:05] VITALS: BP 159/82
== END 2019-03-22 05:10 | disposition home or self-care (01) ==
LOC: ER 00:48
DX: R10.0 Acute abdomen (principal); I12.0 Hypertensive chronic kidney disease with stage 5 chronic kidney disease or end stage renal disease; E11.22 Type 2 diabetes mellitus with diabetic chronic kidney disease; N18.6 End stage renal disease; Z99.2 Dependence on renal dialysis; Z79.4 Long term (current) use of insulin; Z79.84 Long term (current) use of oral hypoglycemic drugs
CPT/HCPCS: 36415; 71045; 74176; 80053; 81003; 83605; 83690; 84484; 85025; 93005; 96374; 96375; 99284; J2270; J2405; J7030

== ENCOUNTER 2019-04-12 00:06 | Emergency (ER) | payer MEDICARE, BC ==
[~2019-04-12] VITALS: Ht 177.8 cm; Wt 91.0 kg
[2019-04-12 00:11] VITALS: BP 157/93
[2019-04-12] MEDS ORDERED: FAMOTIDINE 20MG/2ML VIAL IV STA (00:24)
[2019-04-12] MEDS ORDERED: MORPHINE SULFATE 4 MG/ML CPJ (NOT FOR IM USE) IV STA (00:24)
[2019-04-12] MEDS ORDERED: METOCLOPRAMIDE HCL 10MG/2ML VIAL IV STA (00:24)
[2019-04-12 00:49] LABS: BASOPHILS % 1.4 % (0.0-2.0); EOSINOPHILS % 0.8 % (0.0-5.0); HEMATOCRIT. 32.4 % (42.0-52.0); HEMOGLOBIN. 11.3 g/dL (14.0-18.0); LYMPHOCYTES % 16.8 % (20.0-50.0); MEAN CORPUSCULAR HEMOGLOBIN 31.8 pg (28.0-32.0); MEAN CORPUSCULAR VOLUME 91.2 fL (80.0-94.0); MEAN PLATELET VOLUME 7.2 fl (7.4-10.4); MONOCYTES % 8.7 % (2.0-8.0); NEUTROPHILS % 72.3 % (40.0-76.0); PLATELET 246 x1000/uL (130-400); RED BLOOD CELL COUNT 3.55 mill/uL (4.7-6.1); RED CELL DISTRIBUTION WIDTH 18.8 % (11.6-14.6)
[2019-04-12 00:53] LABS: CHLORIDE 95 mEq/L (98-107)
== END 2019-04-12 13:12 | disposition left against medical advice (07) ==
LOC: ER 00:06 → EDBEDREQTM 01:11 → EDBEDREQ 01:11 → CANRESERV 06:12 → ENRESERV 06:12 → ER 13:12 → CANBEDREQ 19:25
DX: I12.0 Hypertensive chronic kidney disease with stage 5 chronic kidney disease or end stage renal disease (principal); E11.22 Type 2 diabetes mellitus with diabetic chronic kidney disease; R11.2 Nausea with vomiting, unspecified; N18.6 End stage renal disease; Z99.2 Dependence on renal dialysis
CPT/HCPCS: 36415; 71045; 80053; 83605; 83690; 85025; 93005; 96374; 96375; 99284; J2270; J2765; J3490

== ENCOUNTER 2019-05-31 10:52 | Inpatient (IN) | payer MEDICARE ==
[~2019-05-31] VITALS: Ht 177.8 cm; Wt 86.2 kg
[2019-05-31] MEDS ORDERED: ONDANSETRON HCL 4MG/2ML INJ IV ONE (15:00)
[2019-05-31] MEDS ORDERED: MORPHINE SULFATE 10 MG/ML CPJ IV ONE (15:00)
[2019-05-31 15:03] LABS: BASOPHILS % 1.1 % (0.0-2.0); EOSINOPHILS % 2.2 % (0.0-5.0); HEMATOCRIT. 36.2 % (42.0-52.0); HEMOGLOBIN. 12.4 g/dL (14.0-18.0); LYMPHOCYTES % 17.2 % (20.0-50.0); MEAN CORPUSCULAR HEMOGLOBIN 32.6 pg (28.0-32.0); MEAN CORPUSCULAR VOLUME 95.2 fL (80.0-94.0); MONOCYTES % 6.8 % (2.0-8.0); NEUTROPHILS % 72.7 % (40.0-76.0); PLATELET 225 x1000/uL (130-400); RED CELL DISTRIBUTION WIDTH 15.2 % (11.6-14.6)
[2019-05-31 15:07] LABS: CHLORIDE 104 mEq/L (98-107)
[2019-05-31] MEDS ORDERED: HYDRALAZINE 20MG/ML VIAL IV ONE (17:15)
[2019-05-31] MEDS ORDERED: MAGNESIUM/ALUMINUM HYDROXIDE/SIMETHICONE 30ML UDC PO PRN (19:30)
[2019-05-31] MEDS ORDERED: CLONIDINE 0.1MG TABLET PO PRN (19:30)
[2019-05-31] MEDS ORDERED: DEXTROSE 50% WATER 50ML SYRINGE IV PRN (19:30)
[2019-05-31] MEDS ORDERED: ONDANSETRON HCL 4MG/2ML INJ IV PRN (19:30)
[2019-05-31 20:00] VITALS: BP_SYST 196; BP_DIAS 76; BP_DIAS 78
[2019-05-31] MEDS: INSULIN LISPRO 100 UNITS/ML SUBCUT SCH (21:00)
[2019-05-31] MEDS: ACETAMINOPHEN 325MG TABLET PO PRN (21:02)
[2019-05-31] MEDS: HYDRALAZINE HCL 50MG TABLET PO SCH (21:02)
[2019-05-31] MEDS ORDERED: MORPHINE SULFATE 4 MG/ML CPJ (NOT FOR IM USE) IV PRN (21:15)
[2019-05-31] MEDS: BLOOD SUGAR DIAGNOSTIC STRIP TEST SCH (21:44)
[2019-05-31] MEDS ORDERED: HYDROMORPHONE HCL/PF 2MG/ML CPJ IV PRN (22:45)
[2019-05-31] MEDS: DEXT 5%/0.45% NACL 1000ML 1,000 ML IV SCH (23:05)
[2019-05-31] MEDS: SODIUM CHLORIDE 0.9% INJ 3ML FLUSH IVF SCH (23:06)
[2019-06-01] VITALS: BP 148/76
[2019-06-01 04:00] VITALS: BP 146/77
[2019-06-01] MEDS: PANTOPRAZOLE SODIUM 40 MG/VIAL IV SCH ×2 (04:37→20:49)
[2019-06-01] MEDS: HYDRALAZINE HCL 50MG TABLET PO SCH ×3 (05:40→21:00)
[2019-06-01] MEDS: SODIUM CHLORIDE 0.9% INJ 3ML FLUSH IVF SCH ×3 (05:40→21:42)
[2019-06-01 08:00] VITALS: BP 126/67
[2019-06-01] MEDS: INSULIN LISPRO 100 UNITS/ML SUBCUT SCH ×4 (08:10→20:50)
[2019-06-01] MEDS: BLOOD SUGAR DIAGNOSTIC STRIP TEST SCH ×4 (08:36→20:50)
[2019-06-01] MEDS ORDERED: AMLODIPINE 10MG TABLET PO SCH (09:00)
[2019-06-01] MEDS: SEVELAMER CARBONATE 800 MG TABLET PO SCH ×3 (09:01→18:55)
[2019-06-01] MEDS ORDERED: INFLUENZA VIRUS VACCINE(AFLURIA) 0.5ML SYR IM ONE (10:00)
[2019-06-01 12:00] VITALS: BP 149/78
[2019-06-01 16:00] VITALS: BP 156/76
[2019-06-01] MEDS: DEXT 5%/0.45% NACL 1000ML 1,000 ML IV SCH (16:07)
[2019-06-01 20:53] VITALS: BP 128/69
[2019-06-02 00:16] VITALS: BP 128/66
[2019-06-02 04:00] VITALS: BP 130/61
[2019-06-02] MEDS: BLOOD SUGAR DIAGNOSTIC STRIP TEST SCH ×2 (06:23→08:56)
[2019-06-02] MEDS: SODIUM CHLORIDE 0.9% INJ 3ML FLUSH IVF SCH (06:24)
[2019-06-02] MEDS: HYDRALAZINE HCL 50MG TABLET PO SCH (06:24)
[2019-06-02 08:00] VITALS: BP 151/66
[2019-06-02] MEDS: INSULIN LISPRO 100 UNITS/ML SUBCUT SCH (08:10)
[2019-06-02] MEDS: SEVELAMER CARBONATE 800 MG TABLET PO SCH (08:55)
[2019-06-02] MEDS: ACETAMINOPHEN 325MG TABLET PO PRN (09:00)
[2019-06-02 10:22] VITALS: BP 141/66
== END 2019-06-02 12:34 | disposition home or self-care (01) | DRG 682 ==
LOC: ER 10:52 → 7WST 16:23 → EDBEDREQ 16:27 → EDBEDREQTM 16:27 → ENRESERV 17:03
PROVIDERS: ADMIT Internal Medicine; ATTEND Internal Medicine
PROC: 5A1D70Z Performance of Urinary Filtration, Intermittent, Less than 6 Hours Per Day (ICD-10-PCS; principal; 2019-06-01)
DX: I12.0 Hypertensive chronic kidney disease with stage 5 chronic kidney disease or end stage renal disease (principal); N18.6 End stage renal disease; E11.22 Type 2 diabetes mellitus with diabetic chronic kidney disease; D64.9 Anemia, unspecified; Z88.1 Allergy status to other antibiotic agents; Z82.49 Family history of ischemic heart disease and other diseases of the circulatory system; Z99.2 Dependence on renal dialysis; Z79.84 Long term (current) use of oral hypoglycemic drugs
CPT/HCPCS: 36415; 71045; 72100; 82962; 83036; 84484; 90686; 93005; 96374; 99285; C9113; J0360; J2270; J2405

== ENCOUNTER 2019-07-15 20:12 | Inpatient (IN) | payer MEDICARE ==
[~2019-07-15] VITALS: Ht 177.8 cm; Wt 90.7 kg
[2019-07-16] MEDS ORDERED: ONDANSETRON HCL 4MG/2ML INJ IV STA (00:04)
[2019-07-16] MEDS ORDERED: HYDROCODONE/ACETAMINOPHEN 5/325MG TABLET PO STA (00:04)
[2019-07-16] MEDS ORDERED: MAGNESIUM/ALUMINUM HYDROXIDE/SIMETHICONE 30ML UDC PO STA (00:04)
[2019-07-16] MEDS ORDERED: VISCOUS LIDOCAINE 2% 15 ML UDC MM ONE (00:15)
[2019-07-16 00:29] LABS: BASOPHILS % 1.2 % (0.0-2.0); EOSINOPHILS % 1.8 % (0.0-5.0); HEMATOCRIT. 31.6 % (42.0-52.0); HEMOGLOBIN. 10.9 g/dL (14.0-18.0); LYMPHOCYTES % 10.2 % (20.0-50.0); MEAN CORPUSCULAR VOLUME 95.5 fL (80.0-94.0); MEAN PLATELET VOLUME 6.6 fl (7.4-10.4); MONOCYTES % 8.8 % (2.0-8.0); PLATELET 201 x1000/uL (130-400); RED BLOOD CELL COUNT 3.31 mill/uL (4.7-6.1); RED CELL DISTRIBUTION WIDTH 16.4 % (11.6-14.6)
[2019-07-16 00:33] LABS: CHLORIDE 108 mEq/L (98-107)
[2019-07-16] MEDS ORDERED: CALCIUM CHLORIDE 1GM/10ML SYR IV NR (01:15)
[2019-07-16] MEDS ORDERED: DEXTROSE 50% WATER 50ML SYRINGE IV NR (01:15)
[2019-07-16] MEDS ORDERED: INSULIN REGULAR (HUMULIN R) 300UNITS/3ML IV NR (01:15)
[2019-07-16] MEDS ORDERED: SODIUM BICARBONATE 8.4% 1 MEQ/ML 50ML SYR IV NR (01:15)
[2019-07-16] MEDS ORDERED: CLONIDINE 0.3MG TABLET PO ONE (01:15)
[2019-07-16] MEDS ORDERED: ONDANSETRON HCL 4MG/2ML INJ IV PRN (10:30)
[2019-07-16] MEDS ORDERED: HYDRALAZINE 20MG/ML VIAL IV PRN (10:30)
[2019-07-16] MEDS ORDERED: MORPHINE SULFATE 2 MG/ML CPJ (NOT FOR IM USE) IV PRN (10:30)
[2019-07-16] MEDS: NIFEDIPINE XL 60MG TAB PO SCH (10:52)
[2019-07-16 13:30] VITALS: BP 172/92
[2019-07-16] MEDS ORDERED: DEXTROSE 50% WATER 50ML SYRINGE IV PRN (13:45)
[2019-07-16] MEDS: HYDRALAZINE HCL 100MG TABLET PO SCH ×2 (14:30→21:56)
[2019-07-16 16:00] VITALS: BP 123/72
[2019-07-16] MEDS: INSULIN LISPRO 100 UNITS/ML SUBCUT SCH ×2 (17:40→21:00)
[2019-07-16] MEDS: BLOOD SUGAR DIAGNOSTIC STRIP TEST SCH ×2 (17:54→21:56)
[2019-07-16] MEDS: METOCLOPRAMIDE HCL 10MG/2ML VIAL IV SCH (18:03)
[2019-07-16 20:00] VITALS: BP 136/73
[2019-07-17] VITALS: BP 112/53
[2019-07-17] MEDS: METOCLOPRAMIDE HCL 10MG/2ML VIAL IV SCH ×3 (00:49→12:27)
[2019-07-17 04:00] VITALS: BP 112/60
[2019-07-17] MEDS: HYDRALAZINE HCL 100MG TABLET PO SCH ×2 (06:00→14:00)
[2019-07-17] MEDS: INSULIN LISPRO 100 UNITS/ML SUBCUT SCH ×2 (06:34→12:32)
[2019-07-17] MEDS: BLOOD SUGAR DIAGNOSTIC STRIP TEST SCH ×2 (06:34→12:27)
[2019-07-17 07:46] LABS: BASOPHILS % 1.2 % (0.0-2.0); EOSINOPHILS % 4.3 % (0.0-5.0); HEMATOCRIT. 31.1 % (42.0-52.0); HEMOGLOBIN. 10.6 g/dL (14.0-18.0); LYMPHOCYTES % 28.9 % (20.0-50.0); MEAN CORPUSCULAR HEMOGLOBIN 32.5 pg (28.0-32.0); MEAN CORPUSCULAR VOLUME 95.1 fL (80.0-94.0); MEAN PLATELET VOLUME 7.5 fl (7.4-10.4); MONOCYTES % 11.5 % (2.0-8.0); NEUTROPHILS % 54.1 % (40.0-76.0); PLATELET 197 x1000/uL (130-400); RED BLOOD CELL COUNT 3.27 mill/uL (4.7-6.1); RED CELL DISTRIBUTION WIDTH 16.5 % (11.6-14.6)
[2019-07-17 08:00] VITALS: BP 134/74
[2019-07-17] MEDS ORDERED: PANTOPRAZOLE SODIUM 40 MG/VIAL IV SCH (09:00)
[2019-07-17] MEDS: NIFEDIPINE XL 60MG TAB PO SCH (09:09)
== END 2019-07-17 16:03 | disposition left against medical advice (07) | DRG 682 ==
LOC: ER 20:24 → 8WST 07-16 01:12 → ENRESERV 07-16 10:56
PROVIDERS: ADMIT Internal Medicine; ATTEND Internal Medicine
PROC: 5A1D70Z Performance of Urinary Filtration, Intermittent, Less than 6 Hours Per Day (ICD-10-PCS; principal; 2019-07-16)
DX: I12.0 Hypertensive chronic kidney disease with stage 5 chronic kidney disease or end stage renal disease (principal); N18.6 End stage renal disease; E11.43 Type 2 diabetes mellitus with diabetic autonomic (poly)neuropathy; K31.84 Gastroparesis; Z99.2 Dependence on renal dialysis; D63.8 Anemia in other chronic diseases classified elsewhere; E11.22 Type 2 diabetes mellitus with diabetic chronic kidney disease; E87.8 Other disorders of electrolyte and fluid balance, not elsewhere classified; E87.5 Hyperkalemia; Z88.1 Allergy status to other antibiotic agents; Z79.84 Long term (current) use of oral hypoglycemic drugs; Z79.4 Long term (current) use of insulin; Z79.899 Other long term (current) drug therapy
CPT/HCPCS: 36415; 71045; 74018; 80048; 80053; 82962; 83605; 85025; 93005; 96374; 99285; C9113; J1815; J2270; J2405; J2765; J3490

== ENCOUNTER 2019-10-04 08:37 | Emergency (ER) | payer MEDICARE ==
[~2019-10-04] VITALS: Ht 177.8 cm; Wt 93.0 kg
[~2019-10-04 08:37] MED LIST changes: -INSULIN
[2019-10-04] MEDS ORDERED: TETRACAINE 0.5% OPHTH DROPS 4ML RIGHTEYE ONE (09:30)
[2019-10-04] MEDS ORDERED: HYDRALAZINE HCL 100MG TABLET PO ONE (14:45)
[2019-10-04] MEDS ORDERED: CLONIDINE 0.1MG TABLET PO ONE (16:45)
[2019-10-04] MEDS ORDERED: TRAMADOL 50MG TABLET PO ONE (18:15)
[2019-10-04 18:58] VITALS: BP 158/86
== END 2019-10-04 19:18 | disposition short-term general hospital (02) ==
LOC: ER 08:58
DX: H33.21 Serous retinal detachment, right eye (principal); R05 Cough; R06.7 Sneezing; I12.0 Hypertensive chronic kidney disease with stage 5 chronic kidney disease or end stage renal disease; E11.22 Type 2 diabetes mellitus with diabetic chronic kidney disease; N18.6 End stage renal disease; Z99.2 Dependence on renal dialysis; Z79.84 Long term (current) use of oral hypoglycemic drugs; Z79.899 Other long term (current) drug therapy
CPT/HCPCS: 82962; 99285

== ENCOUNTER 2019-10-23 16:53 | Inpatient (IN) | payer BC, MEDICARE ==
[~2019-10-23] VITALS: Ht 177.8 cm; Wt 93.0 kg
[2019-10-23] MEDS ORDERED: IPRATROPIUM BROMIDE (0.02%) 0.5MG/2.5ML NEB HHN STA (17:31)
[2019-10-23] MEDS ORDERED: ALBUTEROL (0.083%) 2.5MG/3ML NEB HHN STA (17:31)
[2019-10-23 17:54] LABS: BASOPHILS % 0.5 % (0.0-2.0); EOSINOPHILS % 4.2 % (0.0-5.0); HEMATOCRIT. 34.9 % (42.0-52.0); HEMOGLOBIN. 11.6 g/dL (14.0-18.0); LYMPHOCYTES % 17.2 % (20.0-50.0); MEAN CORPUSCULAR VOLUME 96.1 fL (80.0-94.0); MONOCYTES % 9.8 % (2.0-8.0); NEUTROPHILS % 68.3 % (40.0-76.0); PLATELET 187 x1000/uL (130-400); RED BLOOD CELL COUNT 3.63 mill/uL (4.7-6.1); RED CELL DISTRIBUTION WIDTH 18.2 % (11.6-14.6)
[2019-10-23 17:57] LABS: CHLORIDE 104 mEq/L (98-107)
[2019-10-23] MEDS ORDERED: LORAZEPAM 2MG/ML CPJ IV ONE (20:30)
[2019-10-23] MEDS ORDERED: ONDANSETRON HCL 4MG/2ML INJ IV PRN (21:30)
[2019-10-23] MEDS ORDERED: HYDRALAZINE 20MG/ML VIAL IV PRN (21:30)
[2019-10-23] MEDS ORDERED: DEXTROSE 50% WATER 50ML SYRINGE IV PRN (21:30)
[2019-10-23] MEDS ORDERED: ACETAMINOPHEN 325MG TABLET PO PRN (21:30)
[2019-10-23] MEDS ORDERED: CLONIDINE 0.1MG TABLET PO PRN (21:30)
[2019-10-24] MEDS ORDERED: AMLODIPINE 10MG TABLET PO SCH (01:00)
[2019-10-24] MEDS ORDERED: HYDRALAZINE HCL 50MG TABLET PO NR (01:00)
[2019-10-24] MEDS ORDERED: ATORVASTATIN CALCIUM 10MG TABLET PO SCH ×2 (01:00→21:00)
[2019-10-24] MEDS ORDERED: FUROSEMIDE 40MG/4ML VIAL IV SCH (01:00)
[2019-10-24 04:00] VITALS: BP 156/84
[2019-10-24 05:00] VITALS: BP 156/84
[2019-10-24] MEDS: BLOOD SUGAR DIAGNOSTIC STRIP TEST SCH ×4 (05:54→21:00)
[2019-10-24 08:00] VITALS: BP 159/85
[2019-10-24] MEDS: INSULIN LISPRO 100 UNITS/ML SUBCUT SCH ×4 (08:10→21:00)
[2019-10-24] MEDS: SEVELAMER CARBONATE 800 MG TABLET PO SCH ×3 (08:10→18:10)
[2019-10-24 09:24] LABS: BASOPHILS % 2.9 % (0.0-2.0); EOSINOPHILS % 3.9 % (0.0-5.0); HEMOGLOBIN. 11.5 g/dL (14.0-18.0); LYMPHOCYTES % 18.6 % (20.0-50.0); MEAN CORPUSCULAR HEMOGLOBIN 32.2 pg (28.0-32.0); MEAN CORPUSCULAR VOLUME 97.9 fL (80.0-94.0); MEAN PLATELET VOLUME 7.9 fl (7.4-10.4); MONOCYTES % 8.2 % (2.0-8.0); NEUTROPHILS % 66.4 % (40.0-76.0); PLATELET 175 x1000/uL (130-400); RED BLOOD CELL COUNT 3.57 mill/uL (4.7-6.1)
[2019-10-24 09:31] LABS: CHLORIDE 106 mEq/L (98-107)
[2019-10-24] MEDS ORDERED: DEXTROSE 50% WATER 50ML SYRINGE IV NR (10:13)
[2019-10-24] MEDS ORDERED: SODIUM BICARBONATE 8.4% 1 MEQ/ML 50ML SYR IV NR (10:13)
[2019-10-24] MEDS: FOLIC ACID/VITAMIN B COMP W-C TABLET PO SCH (10:17)
[2019-10-24] MEDS: HYDRALAZINE HCL 50MG TABLET PO SCH ×2 (10:19→18:00)
[2019-10-24] MEDS: HEPARIN 5000 UNITS/ML VIAL SUBCUT SCH ×2 (10:22→21:00)
[2019-10-24] MEDS: FUROSEMIDE 40MG/4ML VIAL IV SCH (11:02)
[2019-10-24 12:00] VITALS: BP 162/94
[2019-10-24] MEDS ORDERED: INSULIN REGULAR (HUMULIN R) UD 100 UNITS/ML SYR IV NR (12:00)
[2019-10-24] MEDS ORDERED: IPRATROPIUM/ALBUTEROL 0.5-3(2.5)MG/3ML NEB HHN PRN (15:30)
[2019-10-24 16:00] VITALS: BP 170/98
[2019-10-24] MEDS: CLONIDINE 0.1MG TABLET PO SCH (21:00)
[2019-10-24] MEDS ORDERED: AMLODIPINE 5MG TABLET PO SCH (21:00)
[2019-10-24] MEDS: IPRATROPIUM/ALBUTEROL 0.5-3(2.5)MG/3ML NEB HHN SCH (21:53)
[2019-10-24] MEDS: GUAIFENESIN 600MG ER TABLET PO SCH (22:40)
[2019-10-25] VITALS: BP 154/80
[2019-10-25] MEDS: HYDRALAZINE HCL 50MG TABLET PO SCH ×2 (02:00→09:53)
[2019-10-25] MEDS: IPRATROPIUM/ALBUTEROL 0.5-3(2.5)MG/3ML NEB HHN SCH ×2 (02:54→09:42)
[2019-10-25 04:00] VITALS: BP 154/85
[2019-10-25 06:50] LABS: BASOPHILS % 1.4 % (0.0-2.0); EOSINOPHILS % 4.7 % (0.0-5.0); HEMATOCRIT. 33.4 % (42.0-52.0); HEMOGLOBIN. 11.3 g/dL (14.0-18.0); LYMPHOCYTES % 15.9 % (20.0-50.0); MEAN CORPUSCULAR HEMOGLOBIN 32.2 pg (28.0-32.0); MEAN CORPUSCULAR VOLUME 95.2 fL (80.0-94.0); MEAN PLATELET VOLUME 8.1 fl (7.4-10.4); MONOCYTES % 11.1 % (2.0-8.0); NEUTROPHILS % 66.9 % (40.0-76.0); PLATELET 153 x1000/uL (130-400); RED CELL DISTRIBUTION WIDTH 17.5 % (11.6-14.6)
[2019-10-25 06:53] LABS: CHLORIDE 101 mEq/L (98-107)
[2019-10-25] MEDS: BLOOD SUGAR DIAGNOSTIC STRIP TEST SCH (07:40)
[2019-10-25] MEDS: INSULIN LISPRO 100 UNITS/ML SUBCUT SCH (08:10)
[2019-10-25] MEDS ORDERED: AMLODIPINE 10MG TABLET PO SCH (09:00)
[2019-10-25] MEDS: GUAIFENESIN 600MG ER TABLET PO SCH (09:49)
[2019-10-25] MEDS: FOLIC ACID/VITAMIN B COMP W-C TABLET PO SCH (09:50)
[2019-10-25] MEDS: CLONIDINE 0.1MG TABLET PO SCH (09:52)
[2019-10-25] MEDS: FUROSEMIDE 40MG/4ML VIAL IV SCH (09:54)
[2019-10-25] MEDS: HEPARIN 5000 UNITS/ML VIAL SUBCUT SCH (09:56)
[2019-10-25] MEDS ORDERED: FURO-151 MT (11:21)
[2019-10-25 12:20] VITALS: BP 157/89
== END 2019-10-25 15:00 | disposition home or self-care (01) | DRG 291 ==
LOC: ER 16:53 → 7WST 21:11 → EDBEDREQTM 21:13 → EDBEDREQ 21:13 → EDBEDREQTM 21:14 → ENRESERV 10-24 04:02
PROVIDERS: ADMIT Family Medicine Adult Medicine; ATTEND Family Medicine Adult Medicine
PROC: 5A1D70Z Performance of Urinary Filtration, Intermittent, Less than 6 Hours Per Day (ICD-10-PCS; principal; 2019-10-24)
DX: I13.2 Hypertensive heart and chronic kidney disease with heart failure and with stage 5 chronic kidney disease, or end stage renal disease (principal); J96.00 Acute respiratory failure, unspecified whether with hypoxia or hypercapnia; N18.6 End stage renal disease; I50.23 Acute on chronic systolic (congestive) heart failure; E87.5 Hyperkalemia; E87.70 Fluid overload, unspecified; E78.5 Hyperlipidemia, unspecified; D64.9 Anemia, unspecified; I45.10 Unspecified right bundle-branch block; E11.22 Type 2 diabetes mellitus with diabetic chronic kidney disease; H54.61 Unqualified visual loss, right eye, normal vision left eye; Z79.4 Long term (current) use of insulin; Z99.2 Dependence on renal dialysis; Z79.899 Other long term (current) drug therapy; Z82.3 Family history of stroke; Z82.49 Family history of ischemic heart disease and other diseases of the circulatory system; Z87.01 Personal history of pneumonia (recurrent); Z88.2 Allergy status to sulfonamides; Z79.84 Long term (current) use of oral hypoglycemic drugs
CPT/HCPCS: 36415; 71045; 78582; 80048; 80053; 82962; 83036; 83735; 83880; 84484; 85025; 85379; 93005; 93306; 94640; 99285; A9558; J1644; J1815; J1940; J2060; J2405

== ENCOUNTER 2020-03-10 08:43 | Emergency (ER) | payer BC, MEDICARE ==
[~2020-03-10] VITALS: Ht 177.8 cm; Wt 86.0 kg
[~2020-03-10 08:43] MED LIST changes: -AMLO10TA80 PO; +FURO-151 MT
[2020-03-10] MEDS ORDERED: ONDANSETRON HCL 4MG/2ML INJ IV STA (09:03)
[2020-03-10] MEDS ORDERED: SODIUM CHLORIDE 0.9% 1,000 ML IV ONE (09:03)
[2020-03-10] MEDS ORDERED: MORPHINE SULFATE 4 MG/ML CPJ (NOT FOR IM USE) IV STA (09:03)
[2020-03-10] MEDS ORDERED: SODIUM CHLORIDE 0.9% 500 ML IV ONE ×2 (09:15→11:15)
[2020-03-10 09:50] LABS: HEMATOCRIT. 32.8 % (42.0-52.0); HEMOGLOBIN. 11.1 g/dL (14.0-18.0); MEAN CORPUSCULAR HEMOGLOBIN 34.6 pg (28.0-32.0); MEAN CORPUSCULAR VOLUME 102.5 fL (80.0-94.0); PLATELET 116 x1000/uL (130-400); RED CELL DISTRIBUTION WIDTH 18.7 % (11.6-14.6)
[2020-03-10 09:53] LABS: CHLORIDE 104 mEq/L (98-107)
[2020-03-10 09:56] LABS: INR 1.2; PROTHROMBIN TIME 12.4 sec (9.6-11.0)
[2020-03-10 10:32] LABS: PLATELET ESTIMATE SLIGHTLY DECREASED
[2020-03-10] MEDS ORDERED: MORPHINE SULFATE 4 MG/ML CPJ (NOT FOR IM USE) IV ONE (11:15)
[2020-03-10 15:30] VITALS: BP 162/89
== END 2020-03-10 15:30 | disposition home or self-care (01) ==
LOC: ER 08:43
DX: R10.13 Epigastric pain (principal); R11.2 Nausea with vomiting, unspecified; R79.89 Other specified abnormal findings of blood chemistry; I12.0 Hypertensive chronic kidney disease with stage 5 chronic kidney disease or end stage renal disease; E11.22 Type 2 diabetes mellitus with diabetic chronic kidney disease; N18.6 End stage renal disease; Z99.2 Dependence on renal dialysis; Z79.4 Long term (current) use of insulin; Z79.84 Long term (current) use of oral hypoglycemic drugs
CPT/HCPCS: 36415; 74176; 80053; 83690; 85025; 85610; 93005; 96361; 96374; 96375; 96376; 99285; J2270; J2405; J7030; J7040

== ENCOUNTER 2020-03-19 00:38 | Inpatient (IN) | payer BC, MEDICARE ==
[2020-03-19] VITALS (7 sets, daily range): BP systolic 125–166; BP diastolic 59–90
[~2020-03-19] VITALS: Ht 157.5 cm; Wt 81.2 kg
[2020-03-19] MEDS ORDERED: CLONIDINE 0.1MG TABLET PO PRN (10:45)
[2020-03-19] MEDS ORDERED: IPRATROPIUM/ALBUTEROL 0.5-3(2.5)MG/3ML NEB HHN PRN (10:45)
[2020-03-19] MEDS ORDERED: GUAIFENESIN 200MG/10ML SUGAR FREE UDC PO PRN (10:45)
[2020-03-19] MEDS ORDERED: ACETAMINOPHEN 325MG TABLET PO PRN ×2 (10:45)
[2020-03-19] MEDS ORDERED: HYDROCODONE/ACETAMINOPHEN 5/325MG TABLET PO PRN (10:45)
[2020-03-19] MEDS ORDERED: DOCUSATE SODIUM 100MG CAPSULE PO PRN (10:45)
[2020-03-19] MEDS ORDERED: LORAZEPAM 0.5MG TABLET PO PRN (10:45)
[2020-03-19] MEDS: ONDANSETRON HCL 4MG/2ML INJ IV PRN ×2 (11:01→18:44)
[2020-03-19 11:48] LABS: EOSINOPHILS % 4.6 % (0.0-5.0); HEMATOCRIT. 41.5 % (42.0-52.0); HEMOGLOBIN. 13.6 g/dL (14.0-18.0); LYMPHOCYTES % 10.1 % (20.0-50.0); MEAN CORPUSCULAR HEMOGLOBIN 33.2 pg (28.0-32.0); MEAN PLATELET VOLUME 6.6 fl (7.4-10.4); NEUTROPHILS % 70.3 % (40.0-76.0); PLATELET 246 x1000/uL (130-400); RED BLOOD CELL COUNT 4.11 mill/uL (4.7-6.1); RED CELL DISTRIBUTION WIDTH 18.5 % (11.6-14.6)
[2020-03-19 13:54] LABS: INR 1.2; PARTIAL THROMBOPLASTIN TIME 33.6 sec (23.4-31.0); PROTHROMBIN TIME 12.7 sec (9.6-11.0)
[2020-03-19] MEDS: NITROGLYCERIN OINT 1GM/INCH UDPKT TD SCH ×2 (14:02→23:30)
[2020-03-19] MEDS ORDERED: DEXTROSE 50% WATER 50ML SYRINGE IV PRN (14:45)
[2020-03-19] MEDS: SEVELAMER CARBONATE 800 MG TABLET PO SCH (16:50)
[2020-03-19] MEDS: HYDRALAZINE HCL 50MG TABLET PO SCH ×2 (16:51→21:20)
[2020-03-19] MEDS: PSYLLIUM SEED PACKET PO SCH (16:52)
[2020-03-19] MEDS: BLOOD SUGAR DIAGNOSTIC STRIP TEST SCH ×2 (17:27→21:50)
[2020-03-19] MEDS: INSULIN LISPRO 100 UNITS/ML SUBCUT SCH ×2 (17:27→21:00)
[2020-03-19] MEDS: METOPROLOL TARTRATE 25MG TABLET PO SCH (21:17)
[2020-03-19] MEDS: ATORVASTATIN CALCIUM 10MG TABLET PO SCH (21:21)
[2020-03-19] MEDS: INSULIN GLARGINE UD 100 UNITS/ML SYR SUBCUT SCH (21:50)
[2020-03-20] VITALS: BP 124/71
[2020-03-20 04:00] VITALS: BP 128/75
[2020-03-20] MEDS: HYDRALAZINE HCL 50MG TABLET PO SCH ×2 (06:46→13:02)
[2020-03-20] MEDS: BLOOD SUGAR DIAGNOSTIC STRIP TEST SCH ×4 (06:46→21:10)
[2020-03-20] MEDS: NITROGLYCERIN OINT 1GM/INCH UDPKT TD SCH ×2 (06:46→13:02)
[2020-03-20] MEDS: INSULIN LISPRO 100 UNITS/ML SUBCUT SCH ×4 (06:47→21:00)
[2020-03-20] MEDS: SEVELAMER CARBONATE 800 MG TABLET PO SCH ×3 (07:47→17:34)
[2020-03-20] MEDS: ONDANSETRON HCL 4MG/2ML INJ IV PRN ×2 (07:47→13:18)
[2020-03-20 07:53] VITALS: BP 148/72
[2020-03-20 07:57] LABS: BASOPHILS % 0.4 % (0.0-2.0); EOSINOPHILS % 6.4 % (0.0-5.0); HEMATOCRIT. 38.6 % (42.0-52.0); HEMOGLOBIN. 12.8 g/dL (14.0-18.0); LYMPHOCYTES % 11.2 % (20.0-50.0); MEAN CORPUSCULAR HEMOGLOBIN 33.6 pg (28.0-32.0); MEAN CORPUSCULAR VOLUME 101.1 fL (80.0-94.0); MEAN PLATELET VOLUME 6.9 fl (7.4-10.4); MONOCYTES % 11.9 % (2.0-8.0); NEUTROPHILS % 70.1 % (40.0-76.0); PLATELET 222 x1000/uL (130-400); RED BLOOD CELL COUNT 3.82 mill/uL (4.7-6.1); RED CELL DISTRIBUTION WIDTH 18.4 % (11.6-14.6)
[2020-03-20] MEDS: PSYLLIUM SEED PACKET PO SCH ×3 (08:27→17:34)
[2020-03-20] MEDS: FOLIC ACID/VITAMIN B COMP W-C TABLET PO SCH (08:27)
[2020-03-20] MEDS: ASPIRIN 81MG EC TABLET PO SCH (08:27)
[2020-03-20] MEDS: FUROSEMIDE 40MG TABLET PO SCH (08:27)
[2020-03-20] MEDS: METOPROLOL TARTRATE 25MG TABLET PO SCH ×2 (08:28→09:00)
[2020-03-20 08:38] LABS: FERRITIN 1048 ng/mL (22-322)
[2020-03-20 08:41] LABS: VITAMIN B12 SERUM 1302 pg/mL (211-911)
[2020-03-20] MEDS ORDERED: CLOPIDOGREL 75MG TABLET PO SCH (09:00)
[2020-03-20 09:23] LABS: CHLORIDE 107 mEq/L (98-107)
[2020-03-20 09:33] LABS: PHOSPHORUS 3.6 mg/dL (2.5-4.9)
[2020-03-20 09:35] LABS: TOTAL IRON BINDING CAPACITY 251 ug/dL (250-450)
[2020-03-20] MEDS: APIXABAN 5 MG TABLET PO SCH ×2 (10:49→21:10)
[2020-03-20 12:00] VITALS: BP 141/79
[2020-03-20] MEDS: TICAGRELOR 90 MG TABLET PO SCH (17:42)
[2020-03-20 20:00] VITALS: BP 130/70
[2020-03-20] MEDS: ATORVASTATIN CALCIUM 10MG TABLET PO SCH (21:10)
[2020-03-20] MEDS: INSULIN GLARGINE UD 100 UNITS/ML SYR SUBCUT SCH (23:18)
[2020-03-21] VITALS: BP_SYST 108; BP_SYST 140; BP_DIAS 67; BP_DIAS 75
[2020-03-21] MEDS: HYDRALAZINE HCL 50MG TABLET PO SCH ×2 (00:17→06:16)
[2020-03-21] MEDS: NITROGLYCERIN OINT 1GM/INCH UDPKT TD SCH ×2 (00:18→06:16)
[2020-03-21] MEDS: METOPROLOL TARTRATE 25MG TABLET PO SCH ×2 (00:18→08:27)
[2020-03-21 04:00] VITALS: BP 120/68
[2020-03-21] MEDS: BLOOD SUGAR DIAGNOSTIC STRIP TEST SCH ×2 (06:16→12:23)
[2020-03-21 06:56] LABS: BASOPHILS % 2.4 % (0.0-2.0); EOSINOPHILS % 5.3 % (0.0-5.0); HEMATOCRIT. 37.9 % (42.0-52.0); HEMOGLOBIN. 12.6 g/dL (14.0-18.0); LYMPHOCYTES % 9.8 % (20.0-50.0); MEAN CORPUSCULAR HEMOGLOBIN 33.4 pg (28.0-32.0); MEAN CORPUSCULAR VOLUME 100.9 fL (80.0-94.0); MEAN PLATELET VOLUME 7.6 fl (7.4-10.4); MONOCYTES % 14.6 % (2.0-8.0); NEUTROPHILS % 67.9 % (40.0-76.0); PLATELET 212 x1000/uL (130-400); RED BLOOD CELL COUNT 3.76 mill/uL (4.7-6.1); RED CELL DISTRIBUTION WIDTH 18.3 % (11.6-14.6)
[2020-03-21 07:10] LABS: PHOSPHORUS 3.5 mg/dL (2.5-4.9)
[2020-03-21] MEDS: INSULIN LISPRO 100 UNITS/ML SUBCUT SCH ×2 (07:40→12:23)
[2020-03-21 08:00] VITALS: BP 128/62
[2020-03-21 08:08] LABS: HIV SCREEN 4G Non Reactive (Non Reactive)
[2020-03-21] MEDS: ASPIRIN 81MG EC TABLET PO SCH (08:26)
[2020-03-21] MEDS: FUROSEMIDE 40MG TABLET PO SCH (08:26)
[2020-03-21] MEDS: PSYLLIUM SEED PACKET PO SCH ×2 (08:26→12:23)
[2020-03-21] MEDS: TICAGRELOR 90 MG TABLET PO SCH (08:26)
[2020-03-21] MEDS: APIXABAN 5 MG TABLET PO SCH (08:26)
[2020-03-21] MEDS: SEVELAMER CARBONATE 800 MG TABLET PO SCH ×2 (08:27→12:22)
[2020-03-21] MEDS: FOLIC ACID/VITAMIN B COMP W-C TABLET PO SCH (08:27)
[2020-03-21] MEDS: ONDANSETRON HCL 4MG/2ML INJ IV PRN (10:41)
[2020-03-21] MEDS ORDERED: PSYL3.4P5 PO (11:43)
[2020-03-21] MEDS ORDERED: APIX5TAB PO (11:43)
[2020-03-21] MEDS ORDERED: ASPI-1158 PO (11:43)
[2020-03-21] MEDS ORDERED: METO25TA6 PO (11:43)
[2020-03-21] MEDS ORDERED: TICA90TA PO (11:43)
[2020-03-21 11:52] VITALS: BP 126/60
[2020-03-21 11:57] VITALS: BP 126/60
== END 2020-03-21 13:00 | disposition home or self-care (01) | DRG 867 ==
LOC: 8WST 00:38
PROVIDERS: ADMIT Internal Medicine; ATTEND Internal Medicine
PROC: 5A1D70Z Performance of Urinary Filtration, Intermittent, Less than 6 Hours Per Day (ICD-10-PCS; principal; 2020-03-20)
DX: B45.9 Cryptococcosis, unspecified (principal); N18.6 End stage renal disease; I21.4 Non-ST elevation (NSTEMI) myocardial infarction; I50.22 Chronic systolic (congestive) heart failure; I13.2 Hypertensive heart and chronic kidney disease with heart failure and with stage 5 chronic kidney disease, or end stage renal disease; I31.3 Pericardial effusion (noninflammatory); I25.5 Ischemic cardiomyopathy; I27.20 Pulmonary hypertension, unspecified; I34.0 Nonrheumatic mitral (valve) insufficiency; N27.0 Small kidney, unilateral; I25.10 Atherosclerotic heart disease of native coronary artery without angina pectoris; D53.9 Nutritional anemia, unspecified; D72.821 Monocytosis (symptomatic); E11.22 Type 2 diabetes mellitus with diabetic chronic kidney disease; E21.1 Secondary hyperparathyroidism, not elsewhere classified; E11.43 Type 2 diabetes mellitus with diabetic autonomic (poly)neuropathy; E78.5 Hyperlipidemia, unspecified; I45.10 Unspecified right bundle-branch block; K31.84 Gastroparesis; Z79.01 Long term (current) use of anticoagulants; I25.2 Old myocardial infarction; Z79.02 Long term (current) use of antithrombotics/antiplatelets; Z79.4 Long term (current) use of insulin; Z79.82 Long term (current) use of aspirin; Z82.3 Family history of stroke; Z82.49 Family history of ischemic heart disease and other diseases of the circulatory system; Z83.3 Family history of diabetes mellitus; Z86.711 Personal history of pulmonary embolism; Z87.442 Personal history of urinary calculi; Z95.5 Presence of coronary angioplasty implant and graft; Z99.2 Dependence on renal dialysis; Z88.8 Allergy status to other drugs, medicaments and biological substances; Z79.899 Other long term (current) drug therapy
CPT/HCPCS: 36415; 71045; 80048; 80053; 82150; 82607; 82728; 82962; 83540; 83550; 83735; 84100; 84484; 85025; 85379; 87015; 87045; 87177; 87209; 87389; 87427; 87449; 87493; 89055; 93005; 93306; J1815; J2405; J8499

== ENCOUNTER 2020-03-25 15:18 | Emergency (ER) | payer BC, MEDICARE ==
[~2020-03-25] VITALS: Ht 177.8 cm; Wt 82.0 kg
[~2020-03-25 15:18] MED LIST changes: +APIX5TAB PO; +ASPI-1158 PO; +METO25TA6 PO; +PSYL3.4P5 PO; +TICA90TA PO
[2020-03-25] MEDS ORDERED: SODIUM CHLORIDE 0.9% 1,000 ML IV ONE (18:16)
[2020-03-25 18:36] LABS: BASOPHILS % 3.1 % (0.0-2.0); EOSINOPHILS % 4.6 % (0.0-5.0); HEMATOCRIT. 40.1 % (42.0-52.0); HEMOGLOBIN. 13.2 g/dL (14.0-18.0); LYMPHOCYTES % 12.6 % (20.0-50.0); MEAN CORPUSCULAR HEMOGLOBIN 33.5 pg (28.0-32.0); MEAN PLATELET VOLUME 7.6 fl (7.4-10.4); MONOCYTES % 14.4 % (2.0-8.0); NEUTROPHILS % 65.3 % (40.0-76.0); PLATELET 178 x1000/uL (130-400); RED BLOOD CELL COUNT 3.93 mill/uL (4.7-6.1); RED CELL DISTRIBUTION WIDTH 17.7 % (11.6-14.6)
[2020-03-25 18:38] LABS: CHLORIDE 115 mEq/L (98-107)
[2020-03-25 18:42] LABS: INR 1.2; PROTHROMBIN TIME 12.4 sec (9.6-11.0)
[2020-03-25 20:18] VITALS: BP 150/80
== END 2020-03-25 20:46 | disposition home or self-care (01) ==
LOC: ER 15:18
DX: I12.0 Hypertensive chronic kidney disease with stage 5 chronic kidney disease or end stage renal disease (principal); E11.22 Type 2 diabetes mellitus with diabetic chronic kidney disease; N18.6 End stage renal disease; I25.2 Old myocardial infarction; Z99.2 Dependence on renal dialysis; R74.8 Abnormal levels of other serum enzymes; R19.7 Diarrhea, unspecified; Z88.8 Allergy status to other drugs, medicaments and biological substances; Z79.899 Other long term (current) drug therapy; Z79.4 Long term (current) use of insulin; Z79.82 Long term (current) use of aspirin; Z95.5 Presence of coronary angioplasty implant and graft; Z98.890 Other specified postprocedural states; Z88.1 Allergy status to other antibiotic agents
CPT/HCPCS: 36415; 80053; 83690; 85025; 85610; 87015; 87045; 87427; 87449; 89055; 93005; 96360; 99284; J7030

== ENCOUNTER 2020-04-01 16:02 | Emergency (ER) | payer BC, MEDICARE ==
[~2020-04-01] VITALS: Ht 177.8 cm; Wt 82.0 kg
[2020-04-01 18:10] VITALS: BP 109/68
== END 2020-04-01 18:38 | disposition home or self-care (01) ==
LOC: ER 16:02
DX: E78.00 Pure hypercholesterolemia, unspecified (principal); I25.2 Old myocardial infarction; I10 Essential (primary) hypertension; E11.9 Type 2 diabetes mellitus without complications; Z00.00 Encounter for general adult medical examination without abnormal findings; Z98.890 Other specified postprocedural states; Z79.4 Long term (current) use of insulin; Z88.8 Allergy status to other drugs, medicaments and biological substances; Z88.1 Allergy status to other antibiotic agents
CPT/HCPCS: 99281

== ENCOUNTER 2020-09-04 08:40 | Inpatient (IN) | payer BC, MEDICARE ==
[~2020-09-04] VITALS: Ht 177.8 cm; Wt 106.2 kg
[~2020-09-04 08:40] MED LIST changes: -ASPI-1158 PO; +ASPI-1406 PO
[2020-09-04] MEDS ORDERED: HYDROMORPHONE HCL/PF 2MG/ML CPJ IV ONE (09:15)
[2020-09-04 09:46] LABS: HEMATOCRIT. 35.5 % (42.0-52.0); HEMOGLOBIN. 11.8 g/dL (14.0-18.0); MEAN CORPUSCULAR HEMOGLOBIN 34.8 pg (28.0-32.0); MEAN CORPUSCULAR VOLUME 104.6 fL (80.0-94.0); MEAN PLATELET VOLUME 8.3 fl (7.4-10.4); PLATELET 99 x1000/uL (130-400); RED BLOOD CELL COUNT 3.39 mill/uL (4.7-6.1); RED CELL DISTRIBUTION WIDTH 17.7 % (11.6-14.6)
[2020-09-04 09:54] LABS: INR 1.2; PROTHROMBIN TIME 12.1 sec (9.6-11.0)
[2020-09-04 09:59] LABS: CHLORIDE 99 mEq/L (98-107)
[2020-09-04 10:23] LABS: PLATELET ESTIMATE DECREASED
[2020-09-04] MEDS ORDERED: IOHEXOL-300 100 ML BOTTLE ONE (10:26)
[2020-09-04] MEDS ORDERED: MORPHINE SULFATE 2 MG/ML CPJ (NOT FOR IM USE) IV NR (13:45)
[2020-09-04] MEDS ORDERED: LEVOFLOXACIN 500MG PREMIX 100 ML IV NR (14:15)
[2020-09-04] MEDS: NIFEDIPINE XL 60MG TAB PO SCH (16:38)
[2020-09-04] MEDS ORDERED: CLONIDINE 0.1MG TABLET PO PRN (20:00)
[2020-09-04] MEDS: MORPHINE SULFATE 2 MG/ML CPJ (NOT FOR IM USE) IV PRN (20:31)
[2020-09-05 06:26] LABS: HEMATOCRIT. 32.8 % (42.0-52.0); MEAN CORPUSCULAR HEMOGLOBIN 35.1 pg (28.0-32.0); MEAN CORPUSCULAR VOLUME 104.4 fL (80.0-94.0); MEAN PLATELET VOLUME 8.1 fl (7.4-10.4); PLATELET 84 x1000/uL (130-400); RED BLOOD CELL COUNT 3.14 mill/uL (4.7-6.1); RED CELL DISTRIBUTION WIDTH 17.3 % (11.6-14.6)
[2020-09-05 06:48] LABS: PHOSPHORUS 6.7 mg/dL (2.5-4.9)
[2020-09-05] MEDS: FUROSEMIDE 100MG/10ML VIAL IVP SCH (09:21)
[2020-09-05] MEDS: NIFEDIPINE XL 60MG TAB PO SCH (09:21)
[2020-09-05] MEDS: MORPHINE SULFATE 2 MG/ML CPJ (NOT FOR IM USE) IV PRN ×3 (09:27→20:34)
[2020-09-05 10:04] LABS: PLATELET ESTIMATE DECREASED
[2020-09-05 12:00] VITALS: BP 144/84
[2020-09-05] MEDS: CEFTRIAXONE 1,000 MG in DEXTROSE 5% WATER 50 ML IV SCH (14:44)
[2020-09-05 16:00] VITALS: BP 162/93
[2020-09-05] MEDS ORDERED: AZITHROMYCIN 500 MG TABLET PO NR (19:30)
[2020-09-05 20:00] VITALS: BP 152/77
[2020-09-05] MEDS ORDERED: HEPARIN SODIUM 1,000 UNIT/1ML VIAL IV NR (20:00)
[2020-09-06] VITALS: BP 142/78
[2020-09-06 04:00] VITALS: BP 130/88
[2020-09-06] MEDS: MORPHINE SULFATE 2 MG/ML CPJ (NOT FOR IM USE) IV PRN (05:01)
[2020-09-06 07:58] LABS: PHOSPHORUS 5.5 mg/dL (2.5-4.9)
[2020-09-06 08:00] VITALS: BP 151/85
[2020-09-06] MEDS ORDERED: LEVOFLOXACIN 500MG PREMIX 100ML IV SCH (09:00)
[2020-09-06] MEDS: ACETAMINOPHEN 325MG TABLET PO PRN (09:29)
[2020-09-06] MEDS: NIFEDIPINE XL 60MG TAB PO SCH (09:29)
[2020-09-06] MEDS: FUROSEMIDE 100MG/10ML VIAL IVP SCH (09:30)
[2020-09-06 10:08] LABS: EOSINOPHILS % 0.3 % (0.0-5.0); HEMATOCRIT. 34.8 % (42.0-52.0); HEMOGLOBIN. 11.7 g/dL (14.0-18.0); LYMPHOCYTES % 9.3 % (20.0-50.0); MEAN CORPUSCULAR HEMOGLOBIN 35.1 pg (28.0-32.0); MEAN CORPUSCULAR VOLUME 104.7 fL (80.0-94.0); MEAN PLATELET VOLUME 8.5 fl (7.4-10.4); NEUTROPHILS % 76.4 % (40.0-76.0); PLATELET 81 x1000/uL (130-400); RED BLOOD CELL COUNT 3.33 mill/uL (4.7-6.1); RED CELL DISTRIBUTION WIDTH 16.6 % (11.6-14.6)
[2020-09-06] MEDS ORDERED: LIDOCAINE HCL 1% 20ML VIAL (Pyxis) INJ ONE (12:47)
[2020-09-06] MEDS: CEFTRIAXONE 1,000 MG in DEXTROSE 5% WATER 50 ML IV SCH (15:26)
[2020-09-06 16:00] VITALS: BP 127/73
[2020-09-06] MEDS: AZITHROMYCIN 250 MG TABLET PO SCH (19:49)
[2020-09-06 20:00] VITALS: BP 132/86
[2020-09-07 00:01] VITALS: BP 134/77
[2020-09-07 04:00] VITALS: BP 140/88
[2020-09-07] MEDS: MORPHINE SULFATE 2 MG/ML CPJ (NOT FOR IM USE) IV PRN ×3 (04:37→23:40)
[2020-09-07 06:54] LABS: EOSINOPHILS % 0.3 % (0.0-5.0); HEMATOCRIT. 30.8 % (42.0-52.0); HEMOGLOBIN. 10.5 g/dL (14.0-18.0); LYMPHOCYTES % 7.6 % (20.0-50.0); MEAN CORPUSCULAR HEMOGLOBIN 35.3 pg (28.0-32.0); MEAN CORPUSCULAR VOLUME 103.7 fL (80.0-94.0); MEAN PLATELET VOLUME 9.5 fl (7.4-10.4); MONOCYTES % 10.4 % (2.0-8.0); NEUTROPHILS % 80.7 % (40.0-76.0); PLATELET 71 x1000/uL (130-400); RED BLOOD CELL COUNT 2.97 mill/uL (4.7-6.1); RED CELL DISTRIBUTION WIDTH 16.3 % (11.6-14.6)
[2020-09-07 07:24] LABS: PHOSPHORUS 6.6 mg/dL (2.5-4.9)
[2020-09-07 08:00] VITALS: BP 165/100
[2020-09-07] MEDS: FUROSEMIDE 100MG/10ML VIAL IVP SCH (09:20)
[2020-09-07] MEDS: NIFEDIPINE XL 60MG TAB PO SCH (09:20)
[2020-09-07] MEDS: ACETAMINOPHEN 325MG TABLET PO PRN ×2 (09:22→16:32)
[2020-09-07] MEDS ORDERED: SODIUM POLYSTYRENE SULFONATE 15 G/60 ML BOT PO SCH (10:00)
[2020-09-07 12:00] VITALS: BP 133/79
[2020-09-07] MEDS: CEFTRIAXONE 1,000 MG in DEXTROSE 5% WATER 50 ML IV SCH (14:36)
[2020-09-07 16:00] VITALS: BP 136/86
[2020-09-07] MEDS: AZITHROMYCIN 250 MG TABLET PO SCH (19:39)
[2020-09-07 19:50] VITALS: BP 129/71
[2020-09-08 00:01] VITALS: BP 141/69
[2020-09-08 03:48] VITALS: BP 153/90
[2020-09-08] MEDS: MORPHINE SULFATE 2 MG/ML CPJ (NOT FOR IM USE) IV PRN ×3 (06:44→17:13)
[2020-09-08 07:25] LABS: HEMATOCRIT. 30.4 % (42.0-52.0); HEMOGLOBIN. 10.3 g/dL (14.0-18.0); MEAN CORPUSCULAR HEMOGLOBIN 34.8 pg (28.0-32.0); MEAN CORPUSCULAR VOLUME 103.2 fL (80.0-94.0); MEAN PLATELET VOLUME 8.1 fl (7.4-10.4); PLATELET 61 x1000/uL (130-400); RED BLOOD CELL COUNT 2.95 mill/uL (4.7-6.1); RED CELL DISTRIBUTION WIDTH 16.6 % (11.6-14.6)
[2020-09-08 07:53] VITALS: BP 166/88
[2020-09-08] MEDS: NIFEDIPINE XL 60MG TAB PO SCH (08:16)
[2020-09-08] MEDS: FUROSEMIDE 100MG/10ML VIAL IVP SCH (08:16)
[2020-09-08] MEDS: ACETAMINOPHEN 325MG TABLET PO PRN ×2 (08:19→18:49)
[2020-09-08 11:41] VITALS: BP 144/77
[2020-09-08 13:33] LABS: PLATELET ESTIMATE DECREASED
[2020-09-08] MEDS: CEFTRIAXONE 1,000 MG in DEXTROSE 5% WATER 50 ML IV SCH (14:41)
[2020-09-08 16:00] VITALS: BP 115/62
[2020-09-08] MEDS: AZITHROMYCIN 250 MG TABLET PO SCH (18:49)
[2020-09-08 20:00] VITALS: BP 109/65
[2020-09-08] MEDS: HYDROCODONE/ACETAMINOPHEN 5/325MG TABLET PO PRN (22:27)
[2020-09-09] VITALS: BP 124/75
[2020-09-09 04:00] VITALS: BP 116/70
[2020-09-09 08:00] VITALS: BP 133/82
[2020-09-09] MEDS: FUROSEMIDE 100MG/10ML VIAL IVP SCH (08:43)
[2020-09-09] MEDS: HYDROCODONE/ACETAMINOPHEN 5/325MG TABLET PO PRN ×2 (08:43→20:59)
[2020-09-09] MEDS: NIFEDIPINE XL 60MG TAB PO SCH (08:43)
[2020-09-09 10:31] LABS: HEMATOCRIT. 31.5 % (42.0-52.0); HEMOGLOBIN. 10.8 g/dL (14.0-18.0); MEAN CORPUSCULAR VOLUME 102.5 fL (80.0-94.0); MEAN PLATELET VOLUME 9.9 fl (7.4-10.4); PLATELET 79 x1000/uL (130-400); RED BLOOD CELL COUNT 3.08 mill/uL (4.7-6.1); RED CELL DISTRIBUTION WIDTH 16.3 % (11.6-14.6)
[2020-09-09 12:00] VITALS: BP 123/72
[2020-09-09] MEDS: ACETAMINOPHEN 325MG TABLET PO PRN (12:47)
[2020-09-09] MEDS: CEFTRIAXONE 1,000 MG in DEXTROSE 5% WATER 50 ML IV SCH (15:33)
[2020-09-09 16:00] VITALS: BP 99/67
[2020-09-09] MEDS: AZITHROMYCIN 250 MG TABLET PO SCH (18:16)
[2020-09-09 18:24] LABS: PLATELET ESTIMATE DECREASED
[2020-09-09 20:00] VITALS: BP 117/68
[2020-09-10] VITALS: BP 116/71
[2020-09-10] MEDS: ACETAMINOPHEN 325MG TABLET PO PRN ×2 (00:59→17:23)
[2020-09-10 04:00] VITALS: BP 108/71
[2020-09-10 07:56] LABS: BASOPHILS % 1.3 % (0.0-2.0); EOSINOPHILS % 0.7 % (0.0-5.0); HEMATOCRIT. 32.6 % (42.0-52.0); HEMOGLOBIN. 10.7 g/dL (14.0-18.0); LYMPHOCYTES % 10.2 % (20.0-50.0); MEAN CORPUSCULAR HEMOGLOBIN 34.4 pg (28.0-32.0); MEAN CORPUSCULAR VOLUME 104.9 fL (80.0-94.0); MEAN PLATELET VOLUME 9.8 fl (7.4-10.4); MONOCYTES % 6.9 % (2.0-8.0); NEUTROPHILS % 80.9 % (40.0-76.0); PLATELET 87 x1000/uL (130-400); RED BLOOD CELL COUNT 3.11 mill/uL (4.7-6.1); RED CELL DISTRIBUTION WIDTH 16.8 % (11.6-14.6)
[2020-09-10 08:00] VITALS: BP 122/69
[2020-09-10] MEDS: HYDROCODONE/ACETAMINOPHEN 5/325MG TABLET PO PRN (08:57)
[2020-09-10] MEDS: NIFEDIPINE XL 60MG TAB PO SCH (08:58)
[2020-09-10] MEDS: FUROSEMIDE 100MG/10ML VIAL IVP SCH (08:58)
[2020-09-10 09:28] LABS: PHOSPHORUS 8.2 mg/dL (2.5-4.9)
[2020-09-10 12:00] VITALS: BP 125/71
[2020-09-10] MEDS: DEXAMETHASONE 10 MG/ML VIAL IV SCH (12:36)
[2020-09-10] MEDS: SEVELAMER CARBONATE 800 MG TABLET PO SCH ×2 (12:36→17:23)
[2020-09-10] MEDS: HYDROCODONE/ACETAMINOPHEN 10/325MG TABLET PO PRN ×2 (12:48→18:03)
[2020-09-10] MEDS ORDERED: VANCOMYCIN 2,000 MG in DEXT 5% WATER 500 ML IV SCH (14:00)
[2020-09-10] MEDS: CEFTRIAXONE 1,000 MG in DEXTROSE 5% WATER 50 ML IV SCH (14:00)
[2020-09-10 16:00] VITALS: BP 103/61
[2020-09-10] MEDS: AZITHROMYCIN 250 MG TABLET PO SCH (18:03)
[2020-09-10 20:00] VITALS: BP 95/51
[2020-09-11] VITALS (7 sets, daily range): BP systolic 99–114; BP diastolic 57–71
[2020-09-11] MEDS: HYDROCODONE/ACETAMINOPHEN 10/325MG TABLET PO PRN ×3 (05:46→18:10)
[2020-09-11] MEDS: SEVELAMER CARBONATE 800 MG TABLET PO SCH ×3 (06:28→18:02)
[2020-09-11 06:50] LABS: HEMATOCRIT. 31.9 % (42.0-52.0); HEMOGLOBIN. 10.7 g/dL (14.0-18.0); MEAN CORPUSCULAR HEMOGLOBIN 34.6 pg (28.0-32.0); MEAN CORPUSCULAR VOLUME 103.1 fL (80.0-94.0); MEAN PLATELET VOLUME 9.9 fl (7.4-10.4); PLATELET 106 x1000/uL (130-400); RED CELL DISTRIBUTION WIDTH 16.6 % (11.6-14.6)
[2020-09-11] MEDS: NIFEDIPINE XL 60MG TAB PO SCH (09:00)
[2020-09-11] MEDS: DEXAMETHASONE 10 MG/ML VIAL IV SCH (09:42)
[2020-09-11] MEDS: FUROSEMIDE 100MG/10ML VIAL IVP SCH (09:42)
[2020-09-11 14:20] LABS: NUCLEATED RED BLOOD CELLS 1 /100 WBC; PLATELET ESTIMATE DECREASED
[2020-09-12 04:00] VITALS: BP 108/63
[2020-09-12] MEDS: SEVELAMER CARBONATE 800 MG TABLET PO SCH ×3 (06:26→17:00)
[2020-09-12 07:37] LABS: HEMATOCRIT. 35.1 % (42.0-52.0); HEMOGLOBIN. 11.9 g/dL (14.0-18.0); MEAN CORPUSCULAR HEMOGLOBIN 34.9 pg (28.0-32.0); MEAN CORPUSCULAR VOLUME 102.7 fL (80.0-94.0); MEAN PLATELET VOLUME 9.5 fl (7.4-10.4); PLATELET 166 x1000/uL (130-400); RED BLOOD CELL COUNT 3.41 mill/uL (4.7-6.1)
[2020-09-12 08:00] VITALS: BP 106/61
[2020-09-12] MEDS: FUROSEMIDE 100MG/10ML VIAL IVP SCH (08:06)
[2020-09-12] MEDS: DEXAMETHASONE 10 MG/ML VIAL IV SCH (08:06)
[2020-09-12] MEDS: NIFEDIPINE XL 60MG TAB PO SCH (08:06)
[2020-09-12 08:34] LABS: PHOSPHORUS 8.1 mg/dL (2.5-4.9)
[2020-09-12] MEDS: HYDROCODONE/ACETAMINOPHEN 10/325MG TABLET PO PRN ×2 (08:44→20:52)
[2020-09-12 12:00] VITALS: BP 106/68
[2020-09-12 14:21] LABS: PLATELET ESTIMATE NORMAL
[2020-09-12 16:00] VITALS: BP_SYST 106; BP_SYST 122; BP_DIAS 68; BP_DIAS 71
[2020-09-12] MEDS ORDERED: VANCOMYCIN 1 G PREMIX 200 ML IV SCH (16:00)
[2020-09-12 20:00] VITALS: BP 114/69
[2020-09-12] MEDS: CEFEPIME 1,000 MG in DEXTROSE 5% WATER 50 ML IV SCH (20:52)
[2020-09-13] VITALS: BP 111/64
[2020-09-13] MEDS: HYDROCODONE/ACETAMINOPHEN 10/325MG TABLET PO PRN ×4 (01:15→18:45)
[2020-09-13] MEDS: ONDANSETRON HCL 4MG/2ML INJ IV PRN (06:10)
[2020-09-13] MEDS: SEVELAMER CARBONATE 800 MG TABLET PO SCH ×3 (06:10→18:44)
[2020-09-13 06:31] VITALS: BP 126/75
[2020-09-13 08:00] VITALS: BP 135/86
[2020-09-13] MEDS: FUROSEMIDE 100MG/10ML VIAL IVP SCH (08:57)
[2020-09-13] MEDS: DEXAMETHASONE 10 MG/ML VIAL IV SCH (08:57)
[2020-09-13] MEDS: NIFEDIPINE XL 60MG TAB PO SCH (08:57)
[2020-09-13] MEDS: CEFEPIME 1,000 MG in DEXTROSE 5% WATER 50 ML IV SCH ×2 (08:58→22:04)
[2020-09-13 12:00] VITALS: BP 140/83
[2020-09-13] MEDS ORDERED: VANCOMYCIN 1 G PREMIX 200 ML IV SCH (12:00)
[2020-09-13 12:36] LABS: HEMATOCRIT. 38.6 % (42.0-52.0); HEMOGLOBIN. 13.1 g/dL (14.0-18.0); MEAN CORPUSCULAR HEMOGLOBIN 34.3 pg (28.0-32.0); MEAN CORPUSCULAR VOLUME 101.3 fL (80.0-94.0); MEAN PLATELET VOLUME 9.4 fl (7.4-10.4); PLATELET 189 x1000/uL (130-400); RED BLOOD CELL COUNT 3.81 mill/uL (4.7-6.1); RED CELL DISTRIBUTION WIDTH 16.5 % (11.6-14.6)
[2020-09-13 12:50] LABS: PHOSPHORUS 6.4 mg/dL (2.5-4.9)
[2020-09-13 15:23] LABS: PLATELET ESTIMATE NORMAL
[2020-09-13 16:00] VITALS: BP 100/61
[2020-09-13 20:44] VITALS: BP 110/61
[2020-09-14] VITALS: BP 122/77
[2020-09-14 04:00] VITALS: BP 137/76
[2020-09-14] MEDS: SEVELAMER CARBONATE 800 MG TABLET PO SCH ×4 (06:57→17:54)
[2020-09-14] MEDS: HYDROCODONE/ACETAMINOPHEN 10/325MG TABLET PO PRN (07:04)
[2020-09-14 07:54] LABS: HEMATOCRIT. 37.8 % (42.0-52.0); HEMOGLOBIN. 12.9 g/dL (14.0-18.0); MEAN CORPUSCULAR HEMOGLOBIN 34.6 pg (28.0-32.0); MEAN CORPUSCULAR VOLUME 101.8 fL (80.0-94.0); MEAN PLATELET VOLUME 8.9 fl (7.4-10.4); PLATELET 186 x1000/uL (130-400); RED BLOOD CELL COUNT 3.71 mill/uL (4.7-6.1); RED CELL DISTRIBUTION WIDTH 16.7 % (11.6-14.6)
[2020-09-14 08:00] VITALS: BP 104/71
[2020-09-14 08:16] LABS: PHOSPHORUS 7.4 mg/dL (2.5-4.9)
[2020-09-14] MEDS: SODIUM POLYSTYRENE SULFONATE 15 G/60 ML BOT PO SCH ×2 (08:30→10:28)
[2020-09-14] MEDS ORDERED: MORPHINE SULFATE 2 MG/ML CPJ (NOT FOR IM USE) IV SCH (10:15)
[2020-09-14] MEDS: FUROSEMIDE 100MG/10ML VIAL IVP SCH (10:27)
[2020-09-14] MEDS: DEXAMETHASONE 10 MG/ML VIAL IV SCH (10:27)
[2020-09-14] MEDS: NIFEDIPINE XL 60MG TAB PO SCH (10:28)
[2020-09-14 12:00] VITALS: BP 126/71
[2020-09-14 16:00] VITALS: BP 118/75
[2020-09-14 20:00] VITALS: BP 134/67
[2020-09-14] MEDS: CEFEPIME 1,000 MG in DEXTROSE 5% WATER 50 ML IV SCH (21:15)
[2020-09-14 21:29] LABS: PLATELET ESTIMATE NORMAL
[2020-09-14] MEDS: ONDANSETRON HCL 4MG/2ML INJ IV PRN (21:29)
[2020-09-15] MEDS: HYDROCODONE/ACETAMINOPHEN 10/325MG TABLET PO PRN (00:26)
[2020-09-15 04:00] VITALS: BP 114/68
[2020-09-15 05:31] LABS: PHOSPHORUS 7.5 mg/dL (2.5-4.9)
[2020-09-15 05:44] LABS: HEMATOCRIT. 38.9 % (42.0-52.0); HEMOGLOBIN. 13.2 g/dL (14.0-18.0); MEAN CORPUSCULAR HEMOGLOBIN 34.5 pg (28.0-32.0); MEAN CORPUSCULAR VOLUME 101.3 fL (80.0-94.0); MEAN PLATELET VOLUME 8.6 fl (7.4-10.4); PLATELET 186 x1000/uL (130-400); RED BLOOD CELL COUNT 3.84 mill/uL (4.7-6.1); RED CELL DISTRIBUTION WIDTH 16.4 % (11.6-14.6)
[2020-09-15] MEDS: SEVELAMER CARBONATE 800 MG TABLET PO SCH ×3 (06:44→18:09)
[2020-09-15 08:00] VITALS: BP 126/68
[2020-09-15] MEDS: NIFEDIPINE XL 60MG TAB PO SCH (10:33)
[2020-09-15] MEDS: FUROSEMIDE 100MG/10ML VIAL IVP SCH (10:36)
[2020-09-15] MEDS: DEXAMETHASONE 10 MG/ML VIAL IV SCH (10:37)
[2020-09-15 12:00] VITALS: BP 129/75
[2020-09-15 14:01] LABS: PLATELET ESTIMATE NORMAL
[2020-09-15 17:11] VITALS: BP 129/75
[2020-09-15 20:00] VITALS: BP 132/76
[2020-09-15] MEDS: CEFEPIME 1,000 MG in DEXTROSE 5% WATER 50 ML IV SCH (21:41)
[2020-09-16] VITALS: BP 136/77
[2020-09-16 04:00] VITALS: BP 150/64
[2020-09-16] MEDS: SEVELAMER CARBONATE 800 MG TABLET PO SCH ×3 (06:20→17:35)
[2020-09-16 06:21] LABS: HEMATOCRIT. 37.6 % (42.0-52.0); HEMOGLOBIN. 12.5 g/dL (14.0-18.0); MEAN CORPUSCULAR VOLUME 102.1 fL (80.0-94.0); MEAN PLATELET VOLUME 8.4 fl (7.4-10.4); PLATELET 161 x1000/uL (130-400); RED BLOOD CELL COUNT 3.69 mill/uL (4.7-6.1); RED CELL DISTRIBUTION WIDTH 16.5 % (11.6-14.6)
[2020-09-16 07:41] LABS: PHOSPHORUS 8.7 mg/dL (2.5-4.9)
[2020-09-16 08:00] VITALS: BP 119/68
[2020-09-16] MEDS: NIFEDIPINE XL 60MG TAB PO SCH (09:00)
[2020-09-16] MEDS: FUROSEMIDE 100MG/10ML VIAL IVP SCH (09:22)
[2020-09-16] MEDS: DEXAMETHASONE 10 MG/ML VIAL IV SCH (09:22)
[2020-09-16] MEDS ORDERED: SODIUM POLYSTYRENE SULFONATE 15 G/60 ML BOT PO SCH (11:00)
[2020-09-16 12:00] VITALS: BP 112/58
[2020-09-16 16:00] VITALS: BP 135/76
[2020-09-16] MEDS ORDERED: LIDOCAINE 5% PATCH TOP PRN (16:00)
[2020-09-16] MEDS: LIDOCAINE 5% PATCH TOP PRN (16:28)
[2020-09-16 17:20] LABS: PLATELET ESTIMATE NORMAL
[2020-09-16] MEDS: SERTRALINE HCL 25MG TABLET PO SCH (19:06)
[2020-09-16 20:00] VITALS: BP 139/79
[2020-09-16] MEDS: CEFEPIME 1,000 MG in DEXTROSE 5% WATER 50 ML IV SCH (21:26)
[2020-09-17] VITALS: BP 146/84
[2020-09-17 04:00] VITALS: BP 140/76
[2020-09-17] MEDS: ONDANSETRON HCL 4MG/2ML INJ IV PRN (04:39)
[2020-09-17] MEDS: LIDOCAINE 5% PATCH TOP PRN (04:54)
[2020-09-17] MEDS: SEVELAMER CARBONATE 800 MG TABLET PO SCH ×3 (06:14→17:31)
[2020-09-17 07:44] LABS: PHOSPHORUS 7.1 mg/dL (2.5-4.9)
[2020-09-17 08:25] LABS: HEMATOCRIT. 34.6 % (42.0-52.0); HEMOGLOBIN. 11.6 g/dL (14.0-18.0); MEAN CORPUSCULAR HEMOGLOBIN 34.2 pg (28.0-32.0); MEAN PLATELET VOLUME 8.3 fl (7.4-10.4); PLATELET 144 x1000/uL (130-400); RED BLOOD CELL COUNT 3.39 mill/uL (4.7-6.1); RED CELL DISTRIBUTION WIDTH 16.2 % (11.6-14.6)
[2020-09-17] MEDS: DEXAMETHASONE 10 MG/ML VIAL IV SCH (11:16)
[2020-09-17] MEDS: HYDROCODONE/ACETAMINOPHEN 5/325MG TABLET PO PRN ×2 (11:17→17:34)
[2020-09-17] MEDS: FUROSEMIDE 100MG/10ML VIAL IVP SCH (11:18)
[2020-09-17] MEDS: NIFEDIPINE XL 60MG TAB PO SCH (11:18)
[2020-09-17] MEDS: SERTRALINE HCL 25MG TABLET PO SCH (11:18)
[2020-09-17 12:00] VITALS: BP 136/92
[2020-09-17 16:00] VITALS: BP 130/78
[2020-09-17 20:45] VITALS: BP 171/100
[2020-09-17 21:22] LABS: PLATELET ESTIMATE NORMAL
[2020-09-18] VITALS (8 sets, daily range): BP systolic 148–193; BP diastolic 91–105
[2020-09-18] MEDS: SEVELAMER CARBONATE 800 MG TABLET PO SCH ×3 (07:10→17:10)
[2020-09-18] MEDS: NIFEDIPINE XL 60MG TAB PO SCH (09:00)
[2020-09-18] MEDS: SERTRALINE HCL 25MG TABLET PO SCH (09:00)
[2020-09-18] MEDS ORDERED: MORPHINE SULFATE 2 MG/ML CPJ (NOT FOR IM USE) IV PRN (09:15)
[2020-09-18 09:31] LABS: HEMATOCRIT. 39.4 % (42.0-52.0); MEAN CORPUSCULAR HEMOGLOBIN 33.6 pg (28.0-32.0); MEAN CORPUSCULAR VOLUME 102.2 fL (80.0-94.0); PLATELET 148 x1000/uL (130-400); RED BLOOD CELL COUNT 3.85 mill/uL (4.7-6.1); RED CELL DISTRIBUTION WIDTH 16.8 % (11.6-14.6)
[2020-09-18] MEDS: LIDOCAINE 5% PATCH TOP PRN (11:22)
[2020-09-18] MEDS: FUROSEMIDE 100MG/10ML VIAL IVP SCH (11:22)
[2020-09-18] MEDS: DEXAMETHASONE 10 MG/ML VIAL IV SCH (11:23)
[2020-09-18 14:46] LABS: BG CARBOXYHEMOGLOBIN 0.4 % (0.5-1.5); BG DEOXYHEMOGLOBIN 8.2 % (0.0-5.0); BG FRACTION INSPIRED OXYGEN 21; BG HCO3 ACT 18.7 mmol/L (22.0-26.0); BG METHEMOGLOBIN 0.2 % (0.0-1.5); BG OXYGEN SATURATION 91.8 % (92.0-98.5); BG OXYHEMOGLOBIN 91.2 % (94.0-97.0); BG PCO2 34.4 mmHg (35.0-45.0); BG PH 7.353 (7.350-7.450); BG PO2 68.3 mmHg (75.0-100.0); BG SAMPLE SITE LEFT RADIAL; BG TOTAL HEMOGLOBIN 13.2 g/dL (12.0-18.0); BG VENT MODE ROOM AIR
[2020-09-18 17:11] LABS: PLATELET ESTIMATE NORMAL
[2020-09-19] VITALS: BP 158/100
[2020-09-19] MEDS: MEROPENEM 1,000 MG in SODIUM CHLORIDE 0.9% 100 ML IV SCH (01:48)
[2020-09-19 04:00] VITALS: BP 156/98
[2020-09-19 08:00] VITALS: BP 107/66
[2020-09-19] MEDS: ACETAMINOPHEN 325MG TABLET PO PRN (08:08)
[2020-09-19] MEDS: SEVELAMER CARBONATE 800 MG TABLET PO SCH ×3 (08:08→18:08)
[2020-09-19] MEDS: NIFEDIPINE XL 60MG TAB PO SCH (08:09)
[2020-09-19] MEDS: DEXAMETHASONE 10 MG/ML VIAL IV SCH (08:09)
[2020-09-19] MEDS: FUROSEMIDE 100MG/10ML VIAL IVP SCH (08:09)
[2020-09-19 08:41] LABS: HEMATOCRIT. 41.8 % (42.0-52.0); HEMOGLOBIN. 13.9 g/dL (14.0-18.0); MEAN CORPUSCULAR HEMOGLOBIN 33.8 pg (28.0-32.0); MEAN CORPUSCULAR VOLUME 101.5 fL (80.0-94.0); MEAN PLATELET VOLUME 8.3 fl (7.4-10.4); PLATELET 162 x1000/uL (130-400); RED BLOOD CELL COUNT 4.12 mill/uL (4.7-6.1); RED CELL DISTRIBUTION WIDTH 17.2 % (11.6-14.6)
[2020-09-19] MEDS ORDERED: LACTULOSE 20G/30ML UDC PO NR (10:00)
[2020-09-19] MEDS ORDERED: HEPARIN SODIUM 1,000 UNIT/1ML VIAL IV NR (10:00)
[2020-09-19] MEDS ORDERED: LORAZEPAM 2MG/ML CPJ IV PRN (10:00)
[2020-09-19 10:46] LABS: PHOSPHORUS 9.2 mg/dL (2.5-4.9)
[2020-09-19 12:00] VITALS: BP 143/92
[2020-09-19 14:18] LABS: PLATELET ESTIMATE NORMAL
[2020-09-19 16:00] VITALS: BP 136/81
[2020-09-19 20:00] VITALS: BP 137/84
[2020-09-20] VITALS (9 sets, daily range): BP systolic 103–167; BP diastolic 62–105
[2020-09-20] MEDS: MEROPENEM 1,000 MG in SODIUM CHLORIDE 0.9% 100 ML IV SCH (00:48)
[2020-09-20 07:20] LABS: HEMATOCRIT. 37.1 % (42.0-52.0); HEMOGLOBIN. 12.5 g/dL (14.0-18.0); MEAN CORPUSCULAR HEMOGLOBIN 34.3 pg (28.0-32.0); MEAN CORPUSCULAR VOLUME 101.6 fL (80.0-94.0); MEAN PLATELET VOLUME 8.4 fl (7.4-10.4); PLATELET 160 x1000/uL (130-400); RED BLOOD CELL COUNT 3.65 mill/uL (4.7-6.1); RED CELL DISTRIBUTION WIDTH 16.6 % (11.6-14.6)
[2020-09-20 09:03] LABS: PHOSPHORUS 8.9 mg/dL (2.5-4.9)
[2020-09-20] MEDS: SEVELAMER CARBONATE 800 MG TABLET PO SCH ×4 (09:59→18:20)
[2020-09-20] MEDS: NIFEDIPINE XL 60MG TAB PO SCH (09:59)
[2020-09-20] MEDS: FUROSEMIDE 100MG/10ML VIAL IVP SCH (10:00)
[2020-09-20] MEDS: DEXAMETHASONE 10 MG/ML VIAL IV SCH (10:00)
[2020-09-20] MEDS: ONDANSETRON HCL 4MG/2ML INJ IV PRN ×2 (10:00→18:19)
[2020-09-20] MEDS: ACETAMINOPHEN 325MG TABLET PO PRN ×2 (11:53→13:33)
[2020-09-20] MEDS ORDERED: CARVEDILOL 12.5MG TABLET PO SCH (12:00)
[2020-09-20] MEDS ORDERED: AMIODARONE HCL 50MG/ML 3ML VIAL IV ONE (14:15)
[2020-09-20] MEDS ORDERED: AMIODARONE HCL 900 MG in DEXT 5% WATER 482 ML IV SCH (16:00)
[2020-09-20] MEDS ORDERED: AMIODARONE HCL 150 MG in DEXT 5% WATER 100 ML IV NR (16:00)
[2020-09-20 16:56] LABS: PLATELET ESTIMATE NORMAL
[2020-09-20] MEDS: MORPHINE SULFATE 2 MG/ML CPJ (NOT FOR IM USE) IV PRN (18:20)
[2020-09-20] MEDS: CARVEDILOL 12.5MG TABLET PO SCH (21:00)
[2020-09-20] MEDS: ATORVASTATIN CALCIUM 10MG TABLET PO SCH (21:32)
[2020-09-20] MEDS: ASPIRIN 81MG TABLET PO SCH (21:32)
[2020-09-20] MEDS: ENOXAPARIN 100MG/ML SYR SUBCUT SCH (21:38)
[2020-09-21] VITALS (40 sets, daily range): BP systolic 105–142; BP diastolic 63–89
[2020-09-21] MEDS: ONDANSETRON HCL 4MG/2ML INJ IV PRN (00:09)
[2020-09-21] MEDS: MEROPENEM 1,000 MG in SODIUM CHLORIDE 0.9% 100 ML IV SCH (01:35)
[2020-09-21] MEDS: LINEZOLID 600 MG PREMIX 300 ML IV SCH ×2 (04:55→18:45)
[2020-09-21 06:22] LABS: HEMATOCRIT. 34.4 % (42.0-52.0); HEMOGLOBIN. 11.5 g/dL (14.0-18.0); MEAN CORPUSCULAR HEMOGLOBIN 33.8 pg (28.0-32.0); MEAN CORPUSCULAR VOLUME 100.9 fL (80.0-94.0); MEAN PLATELET VOLUME 8.8 fl (7.4-10.4); PLATELET 143 x1000/uL (130-400); RED BLOOD CELL COUNT 3.41 mill/uL (4.7-6.1); RED CELL DISTRIBUTION WIDTH 16.4 % (11.6-14.6)
[2020-09-21 07:15] LABS: PHOSPHORUS 8.5 mg/dL (2.5-4.9)
[2020-09-21] MEDS: DEXAMETHASONE 10 MG/ML VIAL IV SCH (08:45)
[2020-09-21] MEDS: SEVELAMER CARBONATE 800 MG TABLET PO SCH ×3 (08:45→17:40)
[2020-09-21] MEDS: FUROSEMIDE 100MG/10ML VIAL IVP SCH (08:45)
[2020-09-21] MEDS: ASPIRIN 81MG TABLET PO SCH (08:45)
[2020-09-21] MEDS: NIFEDIPINE XL 60MG TAB PO SCH (09:00)
[2020-09-21] MEDS ORDERED: SODIUM POLYSTYRENE SULFONATE 15 G/60 ML BOT PO SCH (10:00)
[2020-09-21 11:49] LABS: PLATELET ESTIMATE NORMAL
[2020-09-21] MEDS: AMIODARONE HCL 200 MG TABLET PO SCH ×2 (12:36→20:18)
[2020-09-21] MEDS: CARVEDILOL 12.5MG TABLET PO SCH ×2 (12:37→20:18)
[2020-09-21] MEDS: ENOXAPARIN 100MG/ML SYR SUBCUT SCH (14:54)
[2020-09-21] MEDS: ATORVASTATIN CALCIUM 10MG TABLET PO SCH (20:18)
[2020-09-21] MEDS ORDERED: HEPARIN SODIUM 1,000 UNIT/1ML VIAL IV NR (21:00)
[2020-09-22] VITALS (64 sets, daily range): BP systolic 106–181; BP diastolic 76–106
[2020-09-22] MEDS: MEROPENEM 1,000 MG in SODIUM CHLORIDE 0.9% 100 ML IV SCH (01:30)
[2020-09-22] MEDS: LINEZOLID 600 MG PREMIX 300 ML IV SCH (05:41)
[2020-09-22 07:55] LABS: HEMATOCRIT. 35.9 % (42.0-52.0); HEMOGLOBIN. 11.8 g/dL (14.0-18.0); MEAN CORPUSCULAR HEMOGLOBIN 33.3 pg (28.0-32.0); MEAN CORPUSCULAR VOLUME 101.2 fL (80.0-94.0); MEAN PLATELET VOLUME 8.6 fl (7.4-10.4); PLATELET 130 x1000/uL (130-400); RED BLOOD CELL COUNT 3.55 mill/uL (4.7-6.1); RED CELL DISTRIBUTION WIDTH 16.4 % (11.6-14.6)
[2020-09-22] MEDS: FUROSEMIDE 100MG/10ML VIAL IVP SCH (08:30)
[2020-09-22] MEDS: ONDANSETRON HCL 4MG/2ML INJ IV PRN (08:30)
[2020-09-22] MEDS: DEXAMETHASONE 10 MG/ML VIAL IV SCH (08:32)
[2020-09-22 08:34] LABS: PHOSPHORUS 7.6 mg/dL (2.5-4.9)
[2020-09-22 08:52] LABS: PLATELET ESTIMATE NORMAL
[2020-09-22] MEDS: ASPIRIN 81MG TABLET PO SCH (09:29)
[2020-09-22] MEDS: AMIODARONE HCL 200 MG TABLET PO SCH ×2 (09:30→20:32)
[2020-09-22] MEDS: CARVEDILOL 12.5MG TABLET PO SCH ×2 (09:30→20:32)
[2020-09-22] MEDS: SEVELAMER CARBONATE 800 MG TABLET PO SCH ×2 (09:30→13:20)
[2020-09-22] MEDS: NIFEDIPINE XL 60MG TAB PO SCH (09:30)
[2020-09-22] MEDS ORDERED: THROAT LOZENGES-BENZOCAINE/MENTH/CETYLPYRD CL LOZENGES MM PRN (11:45)
[2020-09-22] MEDS: METOCLOPRAMIDE HCL 10MG/2ML VIAL IV SCH (11:46)
[2020-09-22] MEDS: ONDANSETRON HCL 4MG/2ML INJ IV SCH (13:49)
[2020-09-22] MEDS: ENOXAPARIN 100MG/ML SYR SUBCUT SCH (15:31)
[2020-09-22] MEDS: ATORVASTATIN CALCIUM 10MG TABLET PO SCH (20:32)
[2020-09-22] MEDS: SENNOSIDES/DOCUSATE SOD 8.6/50MG TABLET PO SCH (20:32)
[2020-09-23] VITALS: BP 124/85
[2020-09-23] MEDS: MEROPENEM 1,000 MG in SODIUM CHLORIDE 0.9% 100 ML IV SCH (01:30)
[2020-09-23 04:00] VITALS: BP 119/79
[2020-09-23] MEDS: METOCLOPRAMIDE HCL 10MG/2ML VIAL IV SCH ×5 (06:00→23:58)
[2020-09-23] MEDS: ONDANSETRON HCL 4MG/2ML INJ IV SCH ×5 (06:00→23:58)
[2020-09-23] MEDS: SEVELAMER CARBONATE 800 MG TABLET PO SCH ×3 (06:26→17:47)
[2020-09-23] MEDS: LINEZOLID 600 MG PREMIX 300 ML IV SCH ×2 (06:27→17:48)
[2020-09-23 07:26] LABS: HEMATOCRIT. 38.1 % (42.0-52.0); HEMOGLOBIN. 12.7 g/dL (14.0-18.0); MEAN CORPUSCULAR HEMOGLOBIN 33.9 pg (28.0-32.0); MEAN PLATELET VOLUME 9.2 fl (7.4-10.4); PLATELET 124 x1000/uL (130-400); RED BLOOD CELL COUNT 3.74 mill/uL (4.7-6.1); RED CELL DISTRIBUTION WIDTH 16.5 % (11.6-14.6)
[2020-09-23 08:00] VITALS: BP 103/72
[2020-09-23 08:20] LABS: PHOSPHORUS 8.1 mg/dL (2.5-4.9)
[2020-09-23] MEDS: POLYETHYLENE GLYCOL 3350 (17GM) 1 DOSE PACK PO SCH (09:43)
[2020-09-23] MEDS: CARVEDILOL 12.5MG TABLET PO SCH ×2 (09:44→20:08)
[2020-09-23] MEDS: NIFEDIPINE XL 60MG TAB PO SCH (09:44)
[2020-09-23] MEDS: ASPIRIN 81MG TABLET PO SCH (09:45)
[2020-09-23] MEDS: AMIODARONE HCL 200 MG TABLET PO SCH ×2 (09:45→20:08)
[2020-09-23] MEDS: FUROSEMIDE 100MG/10ML VIAL IVP SCH (09:45)
[2020-09-23] MEDS: DEXAMETHASONE 10 MG/ML VIAL IV SCH (09:45)
[2020-09-23 12:00] VITALS: BP 121/77
[2020-09-23] MEDS: ENOXAPARIN 100MG/ML SYR SUBCUT SCH (15:03)
[2020-09-23 16:01] VITALS: BP 98/70
[2020-09-23 16:28] LABS: PLATELET ESTIMATE DECREASED
[2020-09-23] MEDS: DOCUSATE SODIUM 100MG CAPSULE PO SCH (17:00)
[2020-09-23 20:00] VITALS: BP 116/73
[2020-09-23] MEDS: SENNOSIDES/DOCUSATE SOD 8.6/50MG TABLET PO SCH (20:08)
[2020-09-23] MEDS: ATORVASTATIN CALCIUM 10MG TABLET PO SCH (20:09)
[2020-09-24] VITALS: BP 152/78
[2020-09-24] MEDS: MEROPENEM 1,000 MG in SODIUM CHLORIDE 0.9% 100 ML IV SCH (00:25)
[2020-09-24 04:00] VITALS: BP 154/87
[2020-09-24] MEDS: LINEZOLID 600 MG PREMIX 300 ML IV SCH ×2 (05:44→18:03)
[2020-09-24] MEDS: ONDANSETRON HCL 4MG/2ML INJ IV SCH ×3 (05:44→18:03)
[2020-09-24] MEDS: METOCLOPRAMIDE HCL 10MG/2ML VIAL IV SCH ×3 (05:44→18:03)
[2020-09-24] MEDS: SEVELAMER CARBONATE 800 MG TABLET PO SCH ×3 (06:19→18:02)
[2020-09-24 07:38] LABS: PHOSPHORUS 5.6 mg/dL (2.5-4.9)
[2020-09-24 07:47] LABS: HEMOGLOBIN. 10.9 g/dL (14.0-18.0); MEAN CORPUSCULAR HEMOGLOBIN 33.6 pg (28.0-32.0); MEAN CORPUSCULAR VOLUME 101.2 fL (80.0-94.0); MEAN PLATELET VOLUME 9.4 fl (7.4-10.4); PLATELET 88 x1000/uL (130-400); RED BLOOD CELL COUNT 3.26 mill/uL (4.7-6.1); RED CELL DISTRIBUTION WIDTH 16.2 % (11.6-14.6)
[2020-09-24 08:00] VITALS: BP 131/81
[2020-09-24] MEDS: ASPIRIN 81MG TABLET PO SCH (08:24)
[2020-09-24] MEDS: AMIODARONE HCL 200 MG TABLET PO SCH ×2 (08:24→20:15)
[2020-09-24] MEDS: CARVEDILOL 12.5MG TABLET PO SCH ×2 (08:24→20:15)
[2020-09-24] MEDS: NIFEDIPINE XL 60MG TAB PO SCH (08:25)
[2020-09-24] MEDS: ENOXAPARIN 100MG/ML SYR SUBCUT SCH (08:25)
[2020-09-24] MEDS: FUROSEMIDE 100MG/10ML VIAL IVP SCH (08:25)
[2020-09-24] MEDS: POLYETHYLENE GLYCOL 3350 (17GM) 1 DOSE PACK PO SCH (08:26)
[2020-09-24] MEDS: DOCUSATE SODIUM 100MG CAPSULE PO SCH ×2 (08:26→17:00)
[2020-09-24 12:00] VITALS: BP 104/72
[2020-09-24 13:51] LABS: PLATELET ESTIMATE DECREASED
[2020-09-24 16:00] VITALS: BP 113/68
[2020-09-24 18:41] LABS: BG CARBOXYHEMOGLOBIN 0.3 % (0.5-1.5); BG DEOXYHEMOGLOBIN 11.4 % (0.0-5.0); BG FRACTION INSPIRED OXYGEN 21; BG HCO3 ACT 22.6 mmol/L (22.0-26.0); BG METHEMOGLOBIN 0.1 % (0.0-1.5); BG OXYGEN SATURATION 88.6 % (92.0-98.5); BG OXYHEMOGLOBIN 88.2 % (94.0-97.0); BG PO2 54.4 mmHg (75.0-100.0); BG SAMPLE SITE LEFT BRACHIAL; BG TOTAL HEMOGLOBIN 12.1 g/dL (12.0-18.0); BG VENT MODE ROOM AIR
[2020-09-24 20:00] VITALS: BP 127/76
[2020-09-24] MEDS: ATORVASTATIN CALCIUM 10MG TABLET PO SCH (20:15)
[2020-09-24] MEDS: SENNOSIDES/DOCUSATE SOD 8.6/50MG TABLET PO SCH (20:16)
[2020-09-24] MEDS: MORPHINE SULFATE 2 MG/ML CPJ (NOT FOR IM USE) IV PRN (20:16)
[2020-09-25] VITALS: BP 117/73
[2020-09-25] MEDS: METOCLOPRAMIDE HCL 10MG/2ML VIAL IV SCH ×5 (00:20→23:14)
[2020-09-25] MEDS: ONDANSETRON HCL 4MG/2ML INJ IV SCH ×5 (00:21→23:15)
[2020-09-25 04:00] VITALS: BP 120/68
[2020-09-25] MEDS: LINEZOLID 600 MG PREMIX 300 ML IV SCH ×2 (05:02→20:42)
[2020-09-25 06:06] LABS: HEMOGLOBIN. 9.9 g/dL (14.0-18.0); MEAN CORPUSCULAR HEMOGLOBIN 34.6 pg (28.0-32.0); MEAN CORPUSCULAR VOLUME 101.7 fL (80.0-94.0); MEAN PLATELET VOLUME 8.5 fl (7.4-10.4); PLATELET 64 x1000/uL (130-400); RED BLOOD CELL COUNT 2.85 mill/uL (4.7-6.1); RED CELL DISTRIBUTION WIDTH 16.2 % (11.6-14.6)
[2020-09-25 08:00] VITALS: BP 150/47
[2020-09-25] MEDS: SEVELAMER CARBONATE 800 MG TABLET PO SCH ×3 (08:02→18:10)
[2020-09-25] MEDS: FUROSEMIDE 100MG/10ML VIAL IVP SCH (08:30)
[2020-09-25] MEDS: POLYETHYLENE GLYCOL 3350 (17GM) 1 DOSE PACK PO SCH (08:31)
[2020-09-25] MEDS: DOCUSATE SODIUM 100MG CAPSULE PO SCH ×2 (08:31→18:10)
[2020-09-25] MEDS: ASPIRIN 81MG TABLET PO SCH (08:33)
[2020-09-25 08:58] LABS: PLATELET ESTIMATE DECREASED
[2020-09-25] MEDS: CARVEDILOL 12.5MG TABLET PO SCH ×2 (09:00→20:37)
[2020-09-25] MEDS: NIFEDIPINE XL 60MG TAB PO SCH (09:00)
[2020-09-25] MEDS: AMIODARONE HCL 200 MG TABLET PO SCH ×2 (09:00→20:36)
[2020-09-25] MEDS: ENOXAPARIN 100MG/ML SYR SUBCUT SCH (09:00)
[2020-09-25 12:00] VITALS: BP 158/48
[2020-09-25] MEDS: ACETAMINOPHEN 325MG TABLET PO PRN (14:43)
[2020-09-25 16:00] VITALS: BP 156/49
[2020-09-25 18:46] LABS: PHOSPHORUS 4.4 mg/dL (2.5-4.9)
[2020-09-25 20:00] VITALS: BP 107/60
[2020-09-25] MEDS: ATORVASTATIN CALCIUM 10MG TABLET PO SCH (20:36)
[2020-09-25] MEDS: SENNOSIDES/DOCUSATE SOD 8.6/50MG TABLET PO SCH (20:37)
[2020-09-26] VITALS: BP 117/48
[2020-09-26 04:00] VITALS: BP 97/61
[2020-09-26] MEDS: ONDANSETRON HCL 4MG/2ML INJ IV SCH ×2 (05:46→12:00)
[2020-09-26] MEDS: METOCLOPRAMIDE HCL 10MG/2ML VIAL IV SCH ×2 (05:46→12:00)
[2020-09-26 08:00] VITALS: BP 141/69
[2020-09-26] MEDS: NIFEDIPINE XL 60MG TAB PO SCH (08:14)
[2020-09-26] MEDS: FUROSEMIDE 100MG/10ML VIAL IVP SCH (08:14)
[2020-09-26] MEDS: ASPIRIN 81MG TABLET PO SCH (08:14)
[2020-09-26] MEDS: SEVELAMER CARBONATE 800 MG TABLET PO SCH ×3 (08:14→18:16)
[2020-09-26] MEDS: CARVEDILOL 12.5MG TABLET PO SCH ×2 (08:14→20:56)
[2020-09-26] MEDS: AMIODARONE HCL 200 MG TABLET PO SCH ×2 (08:15→20:55)
[2020-09-26] MEDS: POLYETHYLENE GLYCOL 3350 (17GM) 1 DOSE PACK PO SCH (08:16)
[2020-09-26] MEDS: DOCUSATE SODIUM 100MG CAPSULE PO SCH ×2 (08:16→17:00)
[2020-09-26] MEDS ORDERED: AMI2 PO (11:03)
[2020-09-26 12:00] VITALS: BP 124/65
[2020-09-26 16:00] VITALS: BP 120/65
[2020-09-26] MEDS ORDERED: METOCLOPRAMIDE HCL 10MG/2ML VIAL IV PRN (17:45)
[2020-09-26] MEDS ORDERED: ONDANSETRON HCL 4MG/2ML INJ IV PRN (17:45)
[2020-09-26 20:00] VITALS: BP 103/61
[2020-09-26] MEDS: SENNOSIDES/DOCUSATE SOD 8.6/50MG TABLET PO SCH (20:55)
[2020-09-26] MEDS: ATORVASTATIN CALCIUM 10MG TABLET PO SCH (20:55)
[2020-09-27] VITALS (7 sets, daily range): BP systolic 93–121; BP diastolic 52–73
[2020-09-27] MEDS: ACETAMINOPHEN 325MG TABLET PO PRN (05:48)
[2020-09-27 08:37] LABS: MEAN CORPUSCULAR VOLUME 100.8 fL (80.0-94.0); RED BLOOD CELL COUNT 2.06 mill/uL (4.7-6.1); RED CELL DISTRIBUTION WIDTH 15.7 % (11.6-14.6)
[2020-09-27 08:43] LABS: PHOSPHORUS 3.2 mg/dL (2.5-4.9)
[2020-09-27] MEDS: POLYETHYLENE GLYCOL 3350 (17GM) 1 DOSE PACK PO SCH (09:00)
[2020-09-27] MEDS: CARVEDILOL 12.5MG TABLET PO SCH ×2 (09:29→20:34)
[2020-09-27] MEDS: DOCUSATE SODIUM 100MG CAPSULE PO SCH ×2 (09:29→17:00)
[2020-09-27] MEDS: AMIODARONE HCL 200 MG TABLET PO SCH ×2 (09:29→20:35)
[2020-09-27] MEDS: SEVELAMER CARBONATE 800 MG TABLET PO SCH ×3 (09:29→20:34)
[2020-09-27] MEDS: NIFEDIPINE XL 60MG TAB PO SCH (09:38)
[2020-09-27] MEDS: FUROSEMIDE 100MG/10ML VIAL IVP SCH (09:39)
[2020-09-27] MEDS: ASPIRIN 81MG TABLET PO SCH (09:49)
[2020-09-27 10:18] LABS: HEMATOCRIT. 20.7 % (42.0-52.0)
[2020-09-27] MEDS: SENNOSIDES/DOCUSATE SOD 8.6/50MG TABLET PO SCH (20:34)
[2020-09-27] MEDS: ATORVASTATIN CALCIUM 10MG TABLET PO SCH (20:34)
[2020-09-27 23:31] LABS: PLATELET 45 x1000/uL (130-400); PLATELET ESTIMATE MARKEDLY DECREASED
[2020-09-28] VITALS: BP 122/74
[2020-09-28 04:00] VITALS: BP 112/58
[2020-09-28 06:31] LABS: PHOSPHORUS 2.5 mg/dL (2.5-4.9)
[2020-09-28 06:42] LABS: HEMATOCRIT. 21.8 % (42.0-52.0); HEMOGLOBIN. 7.6 g/dL (14.0-18.0); MEAN CORPUSCULAR HEMOGLOBIN 34.1 pg (28.0-32.0); MEAN CORPUSCULAR VOLUME 98.4 fL (80.0-94.0); MEAN PLATELET VOLUME 8.2 fl (7.4-10.4); RED BLOOD CELL COUNT 2.22 mill/uL (4.7-6.1); RED CELL DISTRIBUTION WIDTH 17.6 % (11.6-14.6)
[2020-09-28 07:58] LABS: PLATELET 46 x1000/uL (130-400)
[2020-09-28 08:00] VITALS: BP 108/50
[2020-09-28] MEDS: SEVELAMER CARBONATE 800 MG TABLET PO SCH (08:39)
[2020-09-28] MEDS: AMIODARONE HCL 200 MG TABLET PO SCH (08:39)
[2020-09-28] MEDS: ASPIRIN 81MG TABLET PO SCH (08:39)
[2020-09-28] MEDS: POLYETHYLENE GLYCOL 3350 (17GM) 1 DOSE PACK PO SCH (08:39)
[2020-09-28] MEDS: DOCUSATE SODIUM 100MG CAPSULE PO SCH (08:39)
[2020-09-28] MEDS: FUROSEMIDE 100MG/10ML VIAL IVP SCH (08:39)
[2020-09-28] MEDS: NIFEDIPINE XL 60MG TAB PO SCH (09:00)
[2020-09-28] MEDS: CARVEDILOL 12.5MG TABLET PO SCH (09:00)
[2020-09-28 10:51] VITALS: BP 105/50
[2020-09-28 12:00] VITALS: BP 106/63
[2020-09-28 14:54] LABS: PLATELET ESTIMATE DECREASED
== END 2020-09-28 12:18 | disposition home or self-care (01) | DRG 871 ==
LOC: ER 08:51 → MICUSO 11:46 → 7EST 09-05 07:44 → CVICU 09-20 17:21 → 7EST 09-22 16:05 → 5WST 09-23 15:44
PROVIDERS: ADMIT Internal Medicine; ATTEND Internal Medicine
PROC: 5A1D70Z Performance of Urinary Filtration, Intermittent, Less than 6 Hours Per Day (ICD-10-PCS; 2020-09-05)
PROC: 05HY33Z Insertion of Infusion Device into Upper Vein, Percutaneous Approach (ICD-10-PCS; principal; 2020-09-06)
PROC: B54MZZA Ultrasonography of Right Upper Extremity Veins, Guidance (ICD-10-PCS; 2020-09-06)
PROC: 5A1D70Z Performance of Urinary Filtration, Intermittent, Less than 6 Hours Per Day (ICD-10-PCS; 2020-09-06)
PROC: 5A1D70Z Performance of Urinary Filtration, Intermittent, Less than 6 Hours Per Day (ICD-10-PCS; 2020-09-09)
PROC: 5A1D70Z Performance of Urinary Filtration, Intermittent, Less than 6 Hours Per Day (ICD-10-PCS; 2020-09-11)
PROC: 5A1D70Z Performance of Urinary Filtration, Intermittent, Less than 6 Hours Per Day (ICD-10-PCS; 2020-09-16)
PROC: 5A1D70Z Performance of Urinary Filtration, Intermittent, Less than 6 Hours Per Day (ICD-10-PCS; 2020-09-17)
PROC: 5A1D70Z Performance of Urinary Filtration, Intermittent, Less than 6 Hours Per Day (ICD-10-PCS; 2020-09-19)
PROC: 5A1D70Z Performance of Urinary Filtration, Intermittent, Less than 6 Hours Per Day (ICD-10-PCS; 2020-09-21)
PROC: 5A1D70Z Performance of Urinary Filtration, Intermittent, Less than 6 Hours Per Day (ICD-10-PCS; 2020-09-22)
PROC: 5A1D70Z Performance of Urinary Filtration, Intermittent, Less than 6 Hours Per Day (ICD-10-PCS; 2020-09-24)
PROC: 5A1D70Z Performance of Urinary Filtration, Intermittent, Less than 6 Hours Per Day (ICD-10-PCS; 2020-09-26)
PROC: 30233N1 Transfusion of Nonautologous Red Blood Cells into Peripheral Vein, Percutaneous Approach (ICD-10-PCS; 2020-09-27)
DX: A41.89 Other specified sepsis (principal); U07.1 COVID-19; N18.6 End stage renal disease; J96.01 Acute respiratory failure with hypoxia; J12.82 Pneumonia due to coronavirus disease 2019; I26.93 Single subsegmental thrombotic pulmonary embolism without acute cor pulmonale; J15.9 Unspecified bacterial pneumonia; I13.2 Hypertensive heart and chronic kidney disease with heart failure and with stage 5 chronic kidney disease, or end stage renal disease; R18.8 Other ascites; I31.3 Pericardial effusion (noninflammatory); I50.22 Chronic systolic (congestive) heart failure; I48.92 Unspecified atrial flutter; D61.818 Other pancytopenia; I47.1 Supraventricular tachycardia; K80.12 Calculus of gallbladder with acute and chronic cholecystitis without obstruction; D69.6 Thrombocytopenia, unspecified; E11.22 Type 2 diabetes mellitus with diabetic chronic kidney disease; I27.20 Pulmonary hypertension, unspecified; D63.1 Anemia in chronic kidney disease; E11.43 Type 2 diabetes mellitus with diabetic autonomic (poly)neuropathy; I25.10 Atherosclerotic heart disease of native coronary artery without angina pectoris; K31.84 Gastroparesis; K80.20 Calculus of gallbladder without cholecystitis without obstruction; E87.5 Hyperkalemia; F32.9 Major depressive disorder, single episode, unspecified; E83.51 Hypocalcemia; D53.9 Nutritional anemia, unspecified; E78.00 Pure hypercholesterolemia, unspecified; E78.5 Hyperlipidemia, unspecified; I25.5 Ischemic cardiomyopathy; I45.10 Unspecified right bundle-branch block; I48.91 Unspecified atrial fibrillation; N27.0 Small kidney, unilateral; I34.0 Nonrheumatic mitral (valve) insufficiency; I25.2 Old myocardial infarction; Z95.5 Presence of coronary angioplasty implant and graft; Z99.2 Dependence on renal dialysis; Z79.01 Long term (current) use of anticoagulants; Z79.02 Long term (current) use of antithrombotics/antiplatelets; Z79.4 Long term (current) use of insulin; Z79.899 Other long term (current) drug therapy; Z82.49 Family history of ischemic heart disease and other diseases of the circulatory system; Z83.3 Family history of diabetes mellitus; Z88.1 Allergy status to other antibiotic agents; Z88.8 Allergy status to other drugs, medicaments and biological substances; Z79.82 Long term (current) use of aspirin
CPT/HCPCS: 36415; 36600; 71045; 74018; 74177; 76705; 76937; 78227; 80048; 80053; 80061; 80076; 80202; 82140; 82248; 82375; 82728; 82805; 82962; 83036; 83605; 83615; 83735; 83880; 84075; 84100; 84145; 84484; 85025; 85379; 86140; 86850; 86900; 86920; 87426; 93005; 93306; 97162; 97166; 97530; 99285; A9537; C1725; C1893; J0282; J0692; J0696; J1100; J1170; J1644; J1650; J1940; J1956; J2020; J2060; J2185; J2270; J2405; J2765; J3370; J3490; J7040; J7050; J7060; P9016; Q9967; U0003